=== PATIENT | male | born 1990 | race Caucasian/White ===

== ENCOUNTER 2018-06-19 16:19 | Emergency (ER) | payer BC, MEDICARE, OTHER, MEDICAID | END 2018-06-19 18:09 | disposition home or self-care (01) | LOC: M ED 16:19 | DX: S61.432A Puncture wound without foreign body of left hand, initial encounter (principal); W27.0XXA Contact with workbench tool, initial encounter; Y92.9 Unspecified place or not applicable; Y93.89 Activity, other specified; Y99.9 Unspecified external cause status; E11.9 Type 2 diabetes mellitus without complications; Z79.4 Long term (current) use of insulin; Z79.899 Other long term (current) drug therapy | CPT/HCPCS: 73130 ==

== ENCOUNTER 2018-09-29 11:56 | Emergency (ER) | payer BC, MEDICARE, OTHER, MEDICAID ==
[2018-09-29] MEDS: ONDANSETRON 4MG/2ML VIAL (J2405) IV ×2 (14:28)
[2018-09-29] MEDS: NS 1,000 ML IV ×2 (14:28)
[2018-09-29 14:33] LABS: BASO % 0.3 % (0.0-1.0); EOS % 0.2 % (0.0-3.0); HEMATOCRIT 37.8 % (42.0-52.0); HEMOGLOBIN 13.4 g/dl (13.5-17.5); IMMATURE GRANULOCYTE % 0.8 % (0-3.0); LYMPH # 0.9 10^3/uL (1.5-6.5); LYMPH % 6.2 % (24.0-44.0); MEAN CORPUSCULAR HEMOGLOBIN 30.6 pg (27.0-33.0); MEAN CORPUSCULAR HGB CONC 35.4 g/dl (32.0-36.5); MEAN CORPUSCULAR VOLUME 86.3 fl (80.0-96.0); MONO # 0.9 10^3/uL (0.0-0.8); MONO % 6.5 % (0.0-5.0); NEUTROPHILS # 12.5 10^3/uL (1.8-7.7); PLATELET COUNT, AUTOMATED 225 10^3/uL (150-450); RED BLOOD COUNT 4.38 10^6/uL (4.30-6.10); RED CELL DISTRIBUTION WIDTH 11.9 % (11.5-14.5); WHITE BLOOD COUNT 14.5 10^3/uL (4.0-10.0)
[2018-09-29 15:05] LABS: ANION GAP 9 MEQ/L (8-16); BLOOD UREA NITROGEN 20 MG/DL (7-18); CALCIUM LEVEL 8.9 MG/DL (8.5-10.1); CARBON DIOXIDE LEVEL 27 MEQ/L (21-32); CHLORIDE LEVEL 104 MEQ/L (98-107); CREATININE FOR GFR 0.91 MG/DL (0.70-1.30); GLOMERULAR FILTRATION RATE > 60.0 (>60); GLUCOSE, FASTING 69 MG/DL (70-100); POTASSIUM SERUM 3.4 MEQ/L (3.5-5.1); SODIUM LEVEL 140 MEQ/L (136-145)
[2018-09-29] MEDS: POTASSIUM CHLORIDE 10 MEQ SR TABLET PO ×2 (15:22)
[2018-10-03 09:30] LABS: BEDSIDE GLUCOSE 74 MG/DL (70-105)
== END 2018-09-29 16:05 | disposition home or self-care (01) ==
LOC: M ED 11:56
DX: S00.83XA Contusion of other part of head, initial encounter (principal); W19.XXXA Unspecified fall, initial encounter; Y92.009 Unspecified place in unspecified non-institutional (private) residence as the place of occurrence of the external cause; E11.9 Type 2 diabetes mellitus without complications; Z79.4 Long term (current) use of insulin; F17.210 Nicotine dependence, cigarettes, uncomplicated
CPT/HCPCS: J2405

== ENCOUNTER → 2018-11-28 | Outpatient (CLI) | payer BC, OTHER, MEDICARE, MEDICAID ==
[~2018-11-28] MED LIST: AUGM875T28 PO; BENZ200C70 PO; BUSP15TA47 PO; BUSP30TA PO; DRIS50003 PO; GLUC1CHW11 PO; GLUC1KIT; HUMA100I SC; HUMA100I3 SC; HUMA100I5 SUBQ; HUMA75VL SC; INSUHUMDS SC; INSULANT SC; LEVA750T7 PO; PRED10TA PO; PRED20TA PO; SERT-138 PO; SIMV20TA2 PO; TESS100C PO; TYLE325T5 PO; VITA-110 PO; VITA500047 PO; ZOCO10TA PO; [UNRECOGNIZED DRUG - CODE] PO
--- NOTE | 2018-11-28 13:36 | REP ---
UNILATERAL RIGHT RIBS, PA CHEST, FIVE VIEWS: HISTORY: Contusion. COMPARISON: 09/29/2018 The lungs are clear. The heart is normal in size. The pulmonary vasculature is normal in appearance. The bony structure is intact. IMPRESSION: No acute disease. Electronically Signed by Pavel Gresham MD 11/28/2018 01:37 P
== END ==
LOC: M WUC 12:41
PROVIDERS: ATTEND Physician Assistant
DX: S20.221A Contusion of right back wall of thorax, initial encounter (principal); X58.XXXA Exposure to other specified factors, initial encounter; Y92.9 Unspecified place or not applicable

== ENCOUNTER → 2019-07-30 | Outpatient (CLI) | payer BC, OTHER, MEDICARE, MEDICAID ==
[~2019-07-30] MED LIST changes: +PRED-351 PO; -PRED10TA PO
== END ==
LOC: M LAB 16:20
PROVIDERS: ATTEND Internal Medicine Gastroenterology
DX: Z53.9 Procedure and treatment not carried out, unspecified reason (principal)

== ENCOUNTER → 2019-07-31 | Outpatient (REF) | payer BC, OTHER, MEDICARE, MEDICAID | LOC: M LAB REF 10:24 | PROVIDERS: ATTEND Internal Medicine Gastroenterology | DX: K58.0 Irritable bowel syndrome with diarrhea (principal) ==

== ENCOUNTER 2019-09-02 19:23 | Emergency (ER) | payer BC, OTHER, MEDICARE, MEDICAID ==
[~2019-09-02] VITALS: Ht 172.7 cm; Wt 76.4 kg
[2019-09-02] MEDS ORDERED: ALIG4CAP PO ×2 (19:39→22:33)
[2019-09-02] MEDS ORDERED: SERT-138 PO (22:33)
[2019-09-02] MEDS ORDERED: DEXT31GE PO (22:33)
[2019-09-02] MEDS ORDERED: INSUHUMDS SC (22:33)
[2019-09-02] MEDS ORDERED: D3 S20002 PO (22:33)
[2019-09-02] MEDS ORDERED: SIMV40TA2 PO (22:33)
[2019-09-02] MEDS ORDERED: GLUC4GMTAB PO (22:33)
[2019-09-02] MEDS ORDERED: HUMA75IN2 SC (22:33)
[2019-09-02] MEDS ORDERED: GLUC1KIT IM (22:33)
[2019-09-03 02:14] VITALS: BP 128/80
== END 2019-09-03 02:15 | disposition home or self-care (01) ==
LOC: M ED 19:23
DX: F43.20 Adjustment disorder, unspecified (principal); Z91.5 Personal history of self-harm; F84.5 Asperger's syndrome; Z87.820 Personal history of traumatic brain injury; K21.9 Gastro-esophageal reflux disease without esophagitis; E11.9 Type 2 diabetes mellitus without complications; Z79.4 Long term (current) use of insulin; E55.9 Vitamin D deficiency, unspecified; F41.9 Anxiety disorder, unspecified; F32.9 Major depressive disorder, single episode, unspecified; Z79.899 Other long term (current) drug therapy

== ENCOUNTER 2019-10-01 18:15 | Inpatient (IN) | payer BC, OTHER, MEDICARE, MEDICAID ==
[~2019-10-01] VITALS: Ht 175.3 cm; Wt 77.1 kg
[~2019-10-01 18:15] MED LIST changes: +ALIG4CAP PO; +D3 S20002 PO; +DEXT31GE PO; +GLUC1KIT IM; +GLUC4GMTAB PO; +HUMA75IN2 SC; +SIMV40TA2 PO
[2019-10-01 19:13] LABS: HEMATOCRIT 41.2 % (42.0-52.0); HEMOGLOBIN 14.4 g/dl (13.5-17.5); MEAN CORPUSCULAR VOLUME 88.6 fl (80.0-96.0); PLATELET COUNT, AUTOMATED 172 10^3/uL (150-450); RED BLOOD COUNT 4.65 10^6/uL (4.30-6.10); WHITE BLOOD COUNT 5.9 10^3/uL (4.0-10.0)
[2019-10-01 19:38] LABS: ACETAMINOPHEN LEVEL < 2.0 UG/ML (10.0-30.0); ALBUMIN 4.3 GM/DL (3.2-5.2); ALT/SGPT 31 U/L (12-78); BILIRUBIN,DIRECT < 0.1 MG/DL (0.0-0.2); BILIRUBIN,TOTAL 0.3 MG/DL (0.2-1.0); BLOOD UREA NITROGEN 13 MG/DL (7-18); CALCIUM LEVEL 9.7 MG/DL (8.5-10.1); CARBON DIOXIDE LEVEL 30 MEQ/L (21-32); CHLORIDE LEVEL 107 MEQ/L (98-107); CREATININE FOR GFR 1.21 MG/DL (0.70-1.30); ETHYL ALCOHOL (ETHANOL) < 0.003 % (0.000-0.010); GLOMERULAR FILTRATION RATE > 60.0 (>60); GLUCOSE, FASTING 180 MG/DL (70-100); POTASSIUM SERUM 4.2 MEQ/L (3.5-5.1); SALICYLATE LEVEL < 1.7 MG/DL (5.0-30.0); SODIUM LEVEL 142 MEQ/L (136-145); TOTAL PROTEIN 7.3 GM/DL (6.4-8.2)
[2019-10-01 19:43] LABS: AMPHETAMINES LEVEL URINE NEGATIVE (NEGATIVE); BARBITURATES URINE NEGATIVE (NEGATIVE); BENZODIAZEPINES URINE NEGATIVE (NEGATIVE); CANNABINOIDS URINE NEGATIVE (NEGATIVE); COCAINE METABOLITE URINE NEGATIVE (NEGATIVE); METHADONE URINE NEGATIVE (NEGATIVE); OPIATES URINE NEGATIVE (NEGATIVE); PHENCYCLIDINE URINE NEGATIVE (NEGATIVE)
[2019-10-02] MEDS ORDERED: GLUCAGON FOR INJ 1 MG VIAL (J1610) SC PRN
[2019-10-02] MEDS ORDERED: DEXTROSE 50% 50 ML SYRINGE IV PRN
[2019-10-02] MEDS ORDERED: traZODone 50 MG TAB PO PRN
[2019-10-02] MEDS ORDERED: MOM 30ML SUSPENSION UDC PO PRN
[2019-10-02] MEDS ORDERED: MAALOX 30 ML SUSP *UDC PO PRN
[2019-10-02] MEDS ORDERED: GLUCOSE 4 GM CHEW TABLET PO PRN
[2019-10-02] MEDS: SERTRALINE HCL 50 MG TAB PO SCH ×3 (00:33→20:23)
[2019-10-02] MEDS: SIMVASTATIN 40 MG TAB PO SCH ×2 (00:33→20:23)
[2019-10-02 03:03] VITALS: BP 122/83
[2019-10-02 06:36] VITALS: BP 115/58
[2019-10-02] MEDS: HumaLOG 75/25 MIX INSULIN PER UNIT SC SCH ×3 (07:30→18:22)
[2019-10-02] MEDS ORDERED: HumaLOG INSULIN (NovoLOG) PER UNIT SC SCH ×2 (07:30→21:00)
[2019-10-02] MEDS ORDERED: INSUHUMDS SC (09:22)
[2019-10-02] MEDS ORDERED: HUMA75IN2 SC (09:22)
[2019-10-02] MEDS: VITAMIN D 1,000 INTERNATIONAL UNITS TABLET PO SCH (09:35)
[2019-10-02] MEDS: busPIRone 10 MG TAB PO SCH ×2 (09:35→20:23)
[2019-10-02] MEDS: LIDOCAINE 5% OINT 30 GM TOP SCH ×4 (09:37→21:21)
[2019-10-02] MEDS: ACYCLOVIR 200 MG CAPSULE PO SCH ×4 (09:37→20:23)
[2019-10-02 09:42] LABS: CHOLESTEROL RISK RATIO 3.176 (<5)
[2019-10-02] MEDS ORDERED: HumaLOG INSULIN (NovoLOG) PER UNIT SC PRN (10:30)
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
[2019-10-02 18:34] VITALS: BP 132/87
--- NOTE | 2019-10-02 18:37 | HPE ---
DATE OF ADMISSION: 10/02/2019 CHIEF COMPLAINT: Patient has cold sore on the lower lip, which is painful. No fevers, chills, headaches, change in vision, or altered mental status. No genital discharge. Patient is compliant with his insulin for diabetes, for which he follows with [facility]. Last A1c was 8.1. HISTORY OF PRESENT ILLNESS: A 25-year-old male with diabetes, followed by [facility] every 3 months. Next appointment is 10/03/2019, attention deficit disorder (ADD), hyperlipidemia, vitamin D deficiency, posttraumatic stress disorder (PTSD), Asperger syndrome. PAST MEDICAL HISTORY: 1. Vasectomy. 2. Ingrown toenail. ALLERGIES: No known drug allergies. SOCIAL HISTORY: Single, unemployed. Previously smoked one and one-half packs of cigarettes per week when he was 18. Quit some time ago. Drinks six beers on the weekends. No illicit or recreational drug use. FAMILY HISTORY: Father alive and well. He is adopted. HOSPITAL MEDICATIONS: - Lispro insulin before food/at bedtime - vitamin D - buspirone - Lispro 75/25 twice a day - trazodone 50 mg at bedtime - Tylenol 650 every 6 as needed - milk of magnesia 30 daily as needed - Mylanta 30 every 4 as needed - dextrose 25 as needed, hypoglycemic protocol - sertraline 150 twice a day - simvastatin 40 mg every evening REVIEW OF SYSTEMS: Per history of present illness (HPI). A 12-point system otherwise negative. PHYSICAL EXAMINATION: Temperature 99.3, pulse 70, respiratory rate 12, blood pressure 115/58, 99% on room air. GENERAL: Patient has a cold sore on the lower lip, crusting, painful, and tender, erythematous base. No thyromegaly, cervical lymphadenopathy, or jugular venous distention. Pupils round and reactive. Extraocular muscles are intact. Anicteric. LUNGS: Clear to auscultation. No wheezes, rales, or rhonchi. HEART: S1, S2, sinus rhythm. ABDOMEN: Soft, nontender, nondistended. Positive bowel sounds. EXTREMITIES: No clubbing, cyanosis, or any pitting edema LABORATORY DATA: White count 5.9, hemoglobin 14, hematocrit 41, platelet count 172. Sodium 142, potassium 4.2, chloride 107, bicarbonate 30, BUN 13, creatinine 1.21, glucose 180, calcium 9.7. Total bilirubin 0.3, direct bilirubin less than 0.1, AST 16, ALT 31, alkaline phosphatase 63, total protein 7.3, albumin 4.3. TSH of 1.850. ASSESSMENT AND PLAN: This is a 28-year-old with diabetes. Follows at [facility] every 3 months, posttraumatic stress disorder (PTSD), Asperger, attention deficit disorder (ADD), hyperlipidemia, vitamin D deficiency. Complains of a cold sore on the lower lip and requests for his 75/25 insulin mixed B renewed. Patient is admitted for depressive disorder at inpatient mental health unit ([facility]) with the following issues. 1. Herpes, type 1. Cold sore on the lower lip. Zovirax for 5 days, topical lidocaine for pain control. 2. Diabetes. Currently on his home dose of 75/25 Humalog insulin subcutaneous twice a day and sliding-scale insulin before food/at bedtime. 3. Depression, managed by psychiatrist. Currently on sertraline. 4. Dyslipidemia, on Zocor. 5. Deep vein thrombosis (DVT) prophylaxis. Encourage ambulation. MTDD
[2019-10-02] MEDS: HumaLOG INSULIN (NovoLOG) PER UNIT SC PRN (20:26)
[2019-10-03] MEDS: ACYCLOVIR 200 MG CAPSULE PO SCH ×5 (06:30→20:46)
[2019-10-03 06:54] VITALS: BP 122/63
[2019-10-03] MEDS: HumaLOG 75/25 MIX INSULIN PER UNIT SC SCH (08:00)
[2019-10-03] MEDS: LIDOCAINE 5% OINT 30 GM TOP SCH ×4 (09:00→20:46)
[2019-10-03] MEDS: VITAMIN D 1,000 INTERNATIONAL UNITS TABLET PO SCH (09:48)
[2019-10-03] MEDS: busPIRone 10 MG TAB PO SCH ×2 (09:48→20:47)
[2019-10-03] MEDS: SERTRALINE HCL 50 MG TAB PO SCH ×2 (09:49→20:47)
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
[2019-10-03 18:00] VITALS: BP 119/57
[2019-10-03] MEDS: SIMVASTATIN 40 MG TAB PO SCH (20:47)
[2019-10-03] MEDS: HumaLOG INSULIN (NovoLOG) PER UNIT SC PRN (20:49)
[2019-10-04] MEDS: ACETAMINOPHEN TAB 650MG DOSE (2X325MG) PO PRN ×2 (06:16→16:34)
[2019-10-04] MEDS: ACYCLOVIR 200 MG CAPSULE PO SCH ×5 (06:16→20:23)
[2019-10-04 06:22] VITALS: BP 133/71
[2019-10-04] MEDS: HumaLOG 75/25 MIX INSULIN PER UNIT SC SCH ×2 (07:45→16:41)
[2019-10-04] MEDS: LIDOCAINE 5% OINT 30 GM TOP SCH ×4 (09:00→20:28)
[2019-10-04] MEDS: busPIRone 10 MG TAB PO SCH ×2 (09:27→20:22)
[2019-10-04] MEDS: SERTRALINE HCL 50 MG TAB PO SCH ×2 (09:28→20:23)
[2019-10-04] MEDS: VITAMIN D 1,000 INTERNATIONAL UNITS TABLET PO SCH (09:28)
[2019-10-04 10:05] VITALS: BP 115/65
[2019-10-04] MEDS ORDERED: HumaLOG INSULIN (NovoLOG) PER UNIT SC STA (11:00)
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
[2019-10-04 18:00] VITALS: BP 149/76
--- NOTE | 2019-10-04 18:38 | MHIPN ---
DATE OF SERVICE: 10/04/2019 I was notified per nursing staff that Venkata Ashley is a type 1 insulin dependent diabetes. He is on the inpatient mental health unit for depressive disorder. He spiked a temperature earlier today at 101, prior to that it had been 99.3, 98, 98. At 6:00 a.m. it was apparently 101. He had Tylenol and he has been fine all day, feeling well without complaints until approximately 1630 hours when he had a temperature of over 101.8. I was notified at approximately 6:20. He says that he feels well. He knew he had a temperature earlier, it is starting to get better, it is down to 100. He said that he has had a tickle in his throat and a cough. OBJECTIVE: The patient is alert and oriented times three. Temperature is now down to 100. Blood pressure 128/70, pulse 100, respirations 18. HEENT: Pupils are equal and reactive to light. Extraocular muscles intact. Sclerae clear. Conjunctivae normal. No facial asymmetry. Pharynx, gums and tongue pink and moist. Tongue is midline. NECK: Supple. CHEST: Coarse breath sounds. No wheeze or retraction. HEART: Regular. EXTREMITIES: No clubbing, cyanosis, and edema. IMPRESSION/PLAN: 1. Fever. We will get a complete blood count (CBC), CMP, lactic acid, chest x-ray, and UA. Recheck temperature in approximately 1 hour, followup on chest x-ray.
[2019-10-04 19:12] LABS: BASO % 0.5 % (0.0-1.0); EOS % 0.5 % (0.0-3.0); HEMATOCRIT 40.4 % (42.0-52.0); HEMOGLOBIN 13.9 g/dl (13.5-17.5); LYMPH # 0.8 10^3/uL (1.5-5.0); MEAN CORPUSCULAR HEMOGLOBIN 30.8 pg (27.0-33.0); MEAN CORPUSCULAR HGB CONC 34.4 g/dl (32.0-36.5); MEAN CORPUSCULAR VOLUME 89.6 fl (80.0-96.0); MONO # 0.7 10^3/uL (0.0-0.8); MONO % 11.8 % (0.0-5.0); NEUTROPHILS # 4.3 10^3/uL (1.5-8.5); NEUTROPHILS % 73.9 % (36.0-66.0); PLATELET COUNT, AUTOMATED 143 10^3/uL (150-450); RED BLOOD COUNT 4.51 10^6/uL (4.30-6.10); WHITE BLOOD COUNT 5.9 10^3/uL (4.0-10.0)
[2019-10-04] MEDS ORDERED: HumaLOG INSULIN (NovoLOG) PER UNIT SC PRN (19:30)
[2019-10-04 19:43] LABS: ALBUMIN 3.9 GM/DL (3.2-5.2); ALT/SGPT 25 U/L (12-78); BILIRUBIN,TOTAL 0.5 MG/DL (0.2-1.0); BLOOD UREA NITROGEN 12 MG/DL (7-18); CALCIUM LEVEL 9.1 MG/DL (8.5-10.1); CARBON DIOXIDE LEVEL 28 MEQ/L (21-32); CHLORIDE LEVEL 99 MEQ/L (98-107); CREATININE FOR GFR 1.11 MG/DL (0.70-1.30); GLOMERULAR FILTRATION RATE > 60.0 (>60); GLUCOSE, FASTING 485 MG/DL (70-100); POTASSIUM SERUM 4.3 MEQ/L (3.5-5.1); SODIUM LEVEL 133 MEQ/L (136-145); TOTAL PROTEIN 6.9 GM/DL (6.4-8.2)
[2019-10-04 20:00] VITALS: BP 128/81
[2019-10-04] MEDS: SIMVASTATIN 40 MG TAB PO SCH (20:22)
--- NOTE | 2019-10-04 20:32 | MHIPN ---
DATE OF SERVICE: 10/04/2019 He is a 28-year-old male with autism, who is currently on the mental health unit for unspecified depressive disorder. We were asked to follow the patient for his diabetes. He has insulin dependent diabetes type 1 that is quite brittle. He follows a specific regimen with the [facility]. He takes 75/25 twice a day, once at 7:30 a.m. with sliding scale coverage and also part of that is that if his blood sugar at 7:30 a.m. is greater than 251 then he only gets a certain amount of 75/25, he must then have another fingerstick in 3 hours and follow a Humalog sliding scale. The second time of the day that he takes 75/25 is at 4:30 with its own sliding scale and also if at 4:30 the blood sugar was greater than 251 then it must be rechecked in 3 hours and follow a Humalog sliding scale. His 75/25 and the plain Humalog correct scales are on EMR. Nursing has been instructed that they must do the fingersticks at 7:30 a.m. and 4:30 p.m. They have been doing them at 6:00 a.m. This morning the patient only got 24 units of 75/25 instead of 28 units and blood sugar went up to 553, gave 8 units of the Humalog and by 12:30 it was down to 403, by 4:30 it was down to 312 and he got an appropriate dose of 30 units of 75/25 and now it will need to be checked again at 7:30 p.m. and given Humalog if needed according to that scale. The patient continues on consistent carbohydrate diet. OBJECTIVE: VITAL SIGNS: Blood pressure 115/65, pulse 81, respirations 16, oxygen saturation 100% on room air, temperature 98.3. The patient is alert and oriented. HEENT: Pupils are equal and reactive to light. Extraocular muscles intact. Sclerae clear. Conjunctivae normal. No facial asymmetry. Pharynx, gums and tongue pink and moist. Tongue is midline. NECK: Supple without lymphadenopathy. CHEST: Clear to auscultation. HEART: Regular. ABDOMEN: Benign. EXTREMITIES: No clubbing, cyanosis, and edema. Peripheral pulses equal and palpable bilaterally. IMPRESSION/PLAN: 1. Insulin dependent diabetes type 1. Continue 75/25 with a morning scale and a before dinner scale. Continue postprandial scale with Humalog 3 hours after blood sugar is greater than 251. Continue consistent carbohydrate diet. 2. Herpes type 1. Continue Zovirax, improving. 3. Psychiatric plan per psychiatry.
[2019-10-04 20:42] LABS: C REACTIVE PROTEIN QUANTITATIV 7.84 MG/DL (0.00-0.30)
[2019-10-05] MEDS: ACYCLOVIR 200 MG CAPSULE PO SCH ×4 (06:11→17:15)
[2019-10-05] MEDS: ACETAMINOPHEN TAB 650MG DOSE (2X325MG) PO PRN (06:30)
[2019-10-05 06:51] VITALS: BP 132/74
[2019-10-05] MEDS: HumaLOG 75/25 MIX INSULIN PER UNIT SC SCH ×2 (07:13→17:20)
--- NOTE | 2019-10-05 07:14 | IPNPDOC ---
Date Seen The patient was seen on 10/05/19. Progress Note SUBJECTIVE: Patient had a fever yesterday and this morning, but not in DKA, does not have an anion gap, lactic acid elevated at 2.2, CRP elevated at 7.84, respiratory virus panel negative on 10/04/2019, blood cultures pending obtained on 10/04/2019 2. +dry cough. Review chest x-ray, as not appear to have any acute processes, pending official read. Urinalysis is not suggestive of UTI. Patient has no leukocytosis. Patient denies any headaches, chest pain, nausea, vomiting, abdominal pain, urinary issues, or bowel issues, denies arthralgias, myalgias, or new rashes. He does report intermittent shortness of breath. OBJECTIVE PHYSICAL EXAMINATION: VITAL SIGNS: Please see below. GENERAL: male in no acute distress, able to speak in full sentences HEENT:. Normocephalic, atraumatic, tympanic membranes bilaterally clear, mucous membranes, healing canker sore on L oral fissure CARDIOVASCULAR: S1, S2. RESPIRATORY: Clear to auscultation bilaterally. ABDOMINAL:, Positive bowel sounds, nontender to palpation throughout EXTREMITIES:. No edema NEUROLOGICAL: Able to follow structures without difficulty PSYCHOLOGICAL:, Cooperative LABORATORY DATA, IMAGING STUDIES, MICROBIOLOGY: Please see below. ASSESSMENT AND PLAN: Pt is a 28-year-old with Insulin dependent diabetes, posttraumatic stress disorder (PTSD), Asperger, attention deficit disorder (AD D), hyperlipidemia, vitamin D deficiency followed for medical treatment. #URI: Symptomatic treatment #Herpes, type 1: Cold sore on the lower lip. Zovirax for 5 days (ends 10/07), topical lidocaine for pain control. #Diabetes. Continue his home dose of 75/25 Humalog insulin subcutaneous, ISS twice a day and sliding-scale insulin before food/at bedtime. #Depression: continue sertaline, managed by psych #Dyslipidemia: continue home Zocor. #Deep vein thrombosis (DVT) prophylaxis: Encourage ambulation. . We'll continue to follow VS, I&O, 24H, Fishbone Vital Signs/I&O Vital Signs Date Time Temp Pulse Resp B/P (MAP) Pulse Ox O2 Delivery O2 Flow Rate FiO2 10/05/19 06:51 102.2 99 14 132/74 (93) 10/04/19 20:00 99 Room Air Laboratory Data 24H LABS Laboratory Tests 2 10/04/19 09:23: Bedside Glucose (Misc Panel) 553*H 10/04/19 09:46: Bedside Glucose Confirm (Misc) 545*H 10/04/19 12:31: Bedside Glucose (Misc Panel) 403H 10/04/19 16:37: Bedside Glucose (Misc Panel) 312H 10/04/19 18:48: Immature Granulocyte % (Auto) 0.3, Neutrophils (%) (Auto) 73.9H, Lymphocytes (%) (Auto) 13.0L, Monocytes (%) (Auto) 11.8H, Eosinophils (%) (Auto) 0.5, Basophils (%) (Auto) 0.5, Neutrophils # (Auto) 4.3, Lymphocytes # (Auto) 0.8L, Monocytes # (Auto) 0.7, Eosinophils # (Auto) 0.0, Basophils # (Auto) 0.0, Nucleated Red Blood Cells % (auto) 0.0, Anion Gap 6L, Glomerular Filtration Rate > 60.0, Lac tic Acid Level 2.2*H, Calcium Level 9.1, Total Bilirubin 0.5#, Aspartate Amino Transf (AST/SGOT) 11, Alanine Aminotransferase (ALT/SGPT) 25, Alkaline Phosphatase 63, C-Reactive Protein, Quantitative 7.84H, Total Protein 6.9, Albumin 3.9, Albumin/Globulin Ratio 1.30 10/04/19 19:31: Bedside Glucose (Misc Panel) 484H 10/04/19 20:20: Urine Color YELLOW, Urine Appearance CLEAR, Urine pH 6.0, Urine Specific [place] 1.031, Urine Protein NEGATIVE, Urine Glucose (UA) 3+H, Urine Ketones TRACEH, Urine Blood NEGATIVE, Urine Nitrite NEGATIVE, Urine Bilirubin NEGATIVE, Urine Urobilinogen 0.2, Urine Leukocyte Esterase NEGATIVE, Urine WBC (Auto) 0, Urine RBC (Auto) 0, Urine Hyaline Casts (Auto) 0, Urine Bacteria (Auto) NEGATIVE, Urine Squamous Epithelial Cells 0, Urine Mucus (Auto) SMALL, Urine Sperm (Auto) 10/04/19 22:59: Bedside Glucose (Misc Panel) 249H 10/04/19 23:21: Lactic Acid Followup at 4 Hours 1.1 10/05/19 01:49: Bedside Glucose (Misc Panel) 209H 10/05/19 04:37: Bedside Glucose (Misc Panel) 217H 10/05/19 06:28: Bedside Glucose (Misc Panel) 230H CBC/BMP Laboratory Tests 10/04/19 18:48 Microbiology Microbiology 10/04/19 Respiratory Virus Panel (PCR) ([facility]) - Final, Complete 10/04/19 Blood Culture, Received Pending 10/04/19 Blood Culture, Received Pending INDRA ATKINSON MD Oct 05, 2019 07:14
--- NOTE | 2019-10-05 07:45 | REP ---
HISTORY: Cough and fever. COMPARISON: Frontal view obtained as part of a rib series on 11/28/2018. FINDINGS: The superior mediastinal structures are midline. The cardiac silhouette is unremarkable in size, shape and position. The diaphragmatic surfaces of the lungs are regular and the costophrenic angles are clear. The pulmonary brannon are clear. The imaged osseous structures are intact. IMPRESSION: There is no acute cardiopulmonary disease. No significant change from the prior exam. Electronically Signed by Mike Kim DO 10/05/2019 09:22 A
[2019-10-05] MEDS: busPIRone 10 MG TAB PO SCH (08:50)
[2019-10-05] MEDS: SERTRALINE HCL 50 MG TAB PO SCH (08:50)
[2019-10-05] MEDS: VITAMIN D 1,000 INTERNATIONAL UNITS TABLET PO SCH (08:50)
[2019-10-05] MEDS: LIDOCAINE 5% OINT 30 GM TOP SCH ×3 (08:53→17:00)
[2019-10-05] MEDS ORDERED: SODIUM CHLORIDE NASAL 0.65% SPRAY BTL (OCEAN) PRN (11:15)
[2019-10-05] MEDS ORDERED: BENZONATATE 100 MG CAP PO PRN (11:15)
[2019-10-05] MEDS ORDERED: HumaLOG INSULIN (NovoLOG) PER UNIT SC SCH (12:00)
[2019-10-05] MEDS ORDERED: IBUPROFEN 600 MG TAB PO PRN (15:00)
[2019-10-05 16:17] LABS: HEMATOCRIT 41.1 % (42.0-52.0); HEMOGLOBIN 14.3 g/dl (13.5-17.5); MEAN CORPUSCULAR HEMOGLOBIN 30.8 pg (27.0-33.0); MEAN CORPUSCULAR HGB CONC 34.8 g/dl (32.0-36.5); MEAN CORPUSCULAR VOLUME 88.6 fl (80.0-96.0); PLATELET COUNT, AUTOMATED 127 10^3/uL (150-450); RED BLOOD COUNT 4.64 10^6/uL (4.30-6.10); WHITE BLOOD COUNT 5.9 10^3/uL (4.0-10.0)
[2019-10-05 16:44] LABS: BLOOD UREA NITROGEN 13 MG/DL (7-18); CALCIUM LEVEL 9.5 MG/DL (8.5-10.1); CARBON DIOXIDE LEVEL 28 MEQ/L (21-32); CHLORIDE LEVEL 94 MEQ/L (98-107); CREATININE FOR GFR 1.16 MG/DL (0.70-1.30); GLOMERULAR FILTRATION RATE > 60.0 (>60); GLUCOSE, FASTING 477 MG/DL (70-100); POTASSIUM SERUM 4.6 MEQ/L (3.5-5.1); SODIUM LEVEL 132 MEQ/L (136-145)
[2019-10-05 17:10] VITALS: BP 115/72
[2019-10-05] MEDS ORDERED: HumaLOG INSULIN (NovoLOG) PER UNIT SC STA (19:38)
--- NOTE | 2019-10-06 23:26 | MHDS ---
DATE OF ADMISSION: 10/01/2019 DATE OF DISCHARGE: 10/05/2019 HISTORY OF PRESENT ILLNESS: This 28-year-old man with autism residing at [facility] was admitted due to grabbing a sharp stick with threats of harming himself. Please refer to Dr. Xavier admission note from 10/01/2019 for further history on this patient. DISCHARGE DIAGNOSES: 1. 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 2. Autism spectrum disorder. 3. History of posttraumatic stress disorder. 4. History of attention deficit hyperactivity disorder. MEDICAL HISTORY: The patient is transferred to medical service due to uncontrolled glucose. He had a glucose of over 500. The patient has a history of diabetes, hyperlipidemia, vitamin D deficiency and this is all according to Dr. Sugey Palacios. On admission, his blood work was normal as far as hematology goes, except his fasting glucose was high at 180. The liver enzymes were normal. He had lipid profile that was normal. MENTAL STATUS EXAMINATION: I had seen the patient this morning. The patient was alert and oriented times 3. Eye contact was fairly good. He had no complaints. He is not suicidal, homicidal. Concentration is fair. Memory was intact. Says his mood was better and affect restricted, but appropriate to mood. Concentration is fair. Memory is intact. Insight and judgment fair. TREATMENT AND PLAN: It seems that according to the records that patient was improving and was denying being suicidal or homicidal. The patient again is transferred to the medical service due to glucose being very elevated.
--- NOTE | 2019-10-07 10:09 | MHDSPDOC ---
[facility] Discharge Summary Discharge Summary DATE OF ADMISSION: Oct 01, 2019 at 23:51 DATE OF DISCHARGE: Oct 05, 2019 at 21:07 DISCHARGE DIAGNOSES: Adjustment d/o with anxiety and conduct problems Autism Spectrum (Asperger's) high functioning Hx PTSD Hx ADHD REASON FOR ADMISSION: Patient is a 28 -year-old , male, with a history of Autism Specturm (Asperger's) and previous admit [facility] 02/2016, residing at [facility] who was brought to ED by police after pt grabbing a sharp stick and made threats to harm himself. Once in ED pt stated to [facility] staff that [facility] are keeping his food and money and so he grabbed a stick to keep [facility] staff away from him. Pt was cooperative when seen in ED. Stated "I've had it with [facility] and if the continue to control my life then I don't want to be around." States he's been struggling with living situation at [facility] since he first moved in at 17y/o per ED. States that he feels his depression is worse b/c of his living situation only. Pt seen during treatment team and states he's here b/c he got angry and frustrated at [facility] due to not being able to get into his belongs for some sugars for his coffee that he was wanting to drink causing [facility] to call police which caused pt to very superficially cut his rt inner forearm in a tj-cross pattern outer of anger rather than wanting to harm himself. He states he currently takes buspar and zoloft that he find's beneficial. 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 And does sound and come across as linear, logical and capable of having more autonomy in his care for himself than that at [facility]. Denies SI/HI, hallucinations, delusions, feels safe here. CONSULTANTS INVOLVED: none TREATMENT AND PROGRESS ON THE UNIT : Pt was admitted to [facility], seen for p sychiatric assessment and restarted on his outpatient medication Buspar 30mg bid and zoloft 150mg daily. He was provided trazodone 50mg qhs prn insomnia. Pt found his medications beneficial and tolerated them well. He attended groups daily during his stay. His symptoms improved with treatment. Spoke with pt that for him to possible be able to live anywhere else other than [facility] he must work with his PO as he is a level 2 sex offender and continues to break rules at [facility]. Pt states he'll do better to follow the rules and work with his PO to move into less restrictive housing. On day of discharge he denied depression, anxiety, insomnia, SI/HI, hallucinations, delusions. Pt transferred to medical unit for DKA prior D/c home. He is safe for d/c back to [facility] once medically stable DISCHARGE ASSESSMENT:Per 10/04/19: "Pt seen and states that his mood is "good". States he slept well last night. Feels he is tolerating his medications and they're beneficial. He is attending groups and finding them helpful. States his only big issue is that he does not want to return to [facility] b/c he feels he is able to attend to his needs and be able to get to his belongings, food, etc when he wants them and not when he's allowed to have them by [facility] staff. He does sound capable and logical regarding attending to personal needs and self care and does not appear to need such a high level of care. D/c supply chain planner called [facility] staff and the report that pt is a level 2 sex offender that is often dishonest which creates conflict and the one time he was in [facility] apt program had problems with his blood sugars and provider restrictions that where brought to the [facility] court with restriction put in place and privileges given back in 6mo if pt followed the rules but continued to have conflict and did not succeed. Pt was removed from [facility] apt's after [facility] found out he had sex with one of the females there not able to consent. He denies depression, anxiety, insomnia, SI/HI, hallucinations, delusions. Pt feels safe to d/c back to [facility] once medically stable. MENTAL STATUS EXAMINATION ON DISCHARGE: Per 10/04/19 General Appearance: well groomed, lacerations (very superficial on rt inner forearm in tj-cross pattern) Build: average Demeanor: average Eye Contact: average Activity: average Behavior: cooperative Speech: clear, spontaneous, reg/rate,rhythm,volume Mood: euthymic, anxious, irritable Mood "frustrated" Affect: full, appropriate, congruent, anxious Thought Process: logical/linear, intact Thought Content (Delusions): none reported, denies SI, HI, AVH Thought Content (Other): none reported, appropriate Thought Content (Aggressive): none reported Perception (Hallucinations): none reported Perception (Other): none reported Cognition (Impairment of): none reported Cognition(Intelligence Est.): average Oriented: Awake, Alert, Oriented times three Insight: good Judgment: Good Psychosis: Denies MEDICATIONS ON DISCHARGE: buspar 30mg bid zoloft 150mg daily PLAN/FOLLOWUP ARRANGEMENTS: Pt transferred to medical unit for DKA. The amount of time spent in the coordination of care for this patient was approximately 30 minutes. Patient is a 28 -year-old , male, with a history of Autism Specturm (Asperger's) and previous admit [facility] 02/2016, residing at [facility] who was brought to ED by police after pt grabbing a sharp stick and made threats to harm himself. Once in ED pt stated to [facility] staff that [facility] are keeping his food and money and so he grabbed a stick to keep [facility] staff away from him. Pt was cooperative when seen in ED. Stated "I've had it with [facility] and if the continue to control my life then I don't want to be around." States he's been struggling with living situation at [facility] since he first moved in at 17y/o per ED. States that he feels his depression is worse b/c of his living situation only. Pt seen during treatment team and states he's here b/c he got angry and frustrated at [facility] due to not being able to get into his belongs for some sugars for his coffee that he was wanting to drink causing [facility] to call police which caused pt to very superficially cut his rt inner forearm in a tj-cross pattern outer of anger rather than wanting to harm himself. He states he currently takes buspar and zoloft that he find's beneficial. 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 And does sound and come across as linear, logical and capable of having more autonomy in his care for himself than that at [facility]. Denies SI/HI, hallucinations, delusions, feels safe here. VITAL SIGNS: See below. NEW TEST RESULTS: See below. CURRENT MEDICATIONS: See below. MENTAL STATUS EXAMINATION: General Appearance: well groomed, lacerations (very superficial on rt inner forearm in tj-cross pattern) Build: average Demeanor: average Eye Contact: average Activity: average Behavior: cooperative Speech: clear, spontaneous, reg/rate,rhythm,volume Mood: euthymic, anxious, irritable Mood "frustrated" Affect: full, appropriate, congruent, anxious Thought Process: logical/linear, intact Thought Content (Delusions): none reported, denies SI, HI, AVH Thought Content (Other): none reported, appropriate Thought Content (Aggressive): none reported Perception (Hallucinations): none reported Perception (Other): none reported Cognition (Impairment of): none reported Cognition(Intelligence Est.): average Oriented: Awake, Alert, Oriented times three Insight: good Judgment: Good Psychosis: Denies DIAGNOSES: Adjustment d/o with anxiety and conduct problems Autism Spectrum (Asperger's) high functioning Hx PTSD Hx ADHD ASSESSMENT:Pt seen and states that his mood is "good". States he slept well last night. Feels he is tolerating his medications and they're beneficial. He is attending groups and finding them helpful. States his only big issue is that he does not want to return to [facility] b/c he feels he is able to attend to his needs and be able to get to his belongings, food, etc when he wants them and not when he's allowed to have them by [facility] staff. He does sound capable and logical regarding attending to personal needs and self care and does not appear to need such a high level of care. D/c supply chain planner called [facility] staff and the report that pt is a level 2 sex offender that is often dishonest which creates conflict and the one time he was in [facility] apt program had problems with his blood sugars and provi fabi restrictions that where brought to the [facility] court with restriction put in place and privileges given back in 6mo if pt followed the rules but continued to have conflict and did not succeed. Pt was removed from [facility] apt's after [facility] found out he had sex with one of the females there not able to consent. He denies depression, anxiety, insomnia, SI/HI, hallucinations, delusions. Pt feels safe here. MANAGEMENT PLAN:continue plan, work with [facility] regarding pt move into own apt Medications: buspar zoloft 150mg daily Vital Signs/I&Os Vital Signs Date Time Temp Pulse Resp B/P (MAP) Pulse Ox O2 Delivery O2 Flow Rate FiO2 10/05/19 17:10 101.0 94 16 115/72 (86) 10/04/19 20:00 99 Room Air Laboratory Data Microbiology Microbiology 10/05/19 Respiratory Virus Panel (PCR) ([facility]) - Final, Complete 10/04/19 Respiratory Virus Panel (PCR) ([facility]) - Final, Complete 10/04/19 Blood Culture - Preliminary, Resulted No Growth after 48 hours. All Specime... 10/04/19 Blood Culture - Preliminary, Resulted No Growth after 48 hours. All Specime... Medications Scheduled Bifidobacterium Infantis (Align) 4 Mg Capsule, 4 MG PO QHS, (Reported) Buspirone HCl (Buspirone HCl) 30 Mg Tab, 30 MG PO BID, (Reported) Cholecalciferol (Vitamin D3) (Vitamin D3) 2,000 Unit Capsule, 2,000 UNIT PO DAILY, (Reported) Insulin Lispro Protamin/Lispro (Humalog Mix 75-25 Kwikpen) 100 Unit/1 Ml Insuln.pen, 1 DOSE SC ACB for . , (Reported) PER SLIDING SCALE 70 - 90 = 16 UNITS 91 - 130 = 18 UNITS 131 - 150 = 20 UNITS 151 - 200 = 22 UNITS 201 - 250 = 24 UNITS 251 - 300 = 26 UNITS 301 - 350 = 28 UNITS 351 - 400 = 30 UNITS 401 - 450 = 32 UNITS OVER 450 = 32 UNITS Insulin Lispro Protamin/Lispro (Humalog Mix 75-25 Kwikpen) 100 Unit/1 Ml Insul n.pen, 1 DOSE SC ACS for . , (Reported) PER SLIDING SCALE 70 - 90 = 18 UNITS 91 - 130 = 20 UNITS 131 - 150 = 22 UNITS 151 - 200 = 24 UNITS 201 - 250 = 26 UNITS 251 - 300 = 28 UNITS 301 - 350 = 30 UNITS 351 - 400 = 31 UNITS 401 - 450 = 31 UNITS OVER 450 = 31 UNITS Sertraline HCl (Sertraline HCl) 100 Mg Tablet, 150 MG PO BID, (Reported) Simvastatin (Simvastatin) 40 Mg Tablet, 40 MG PO QHS, (Reported) Scheduled PRN Dextrose (Glucose) 4 Gm Tab.chew, 4 CHW PO ASDIRECTED PRN for LOW BLOOD SUGAR, (Reported) Dextrose/Dextrin/Maltose (Insta-Glucose Gel) 31 Gm Gel..gram., 1 DOSE PO ASDIRECTED PRN for LOW BLOOD SUGAR, (Reported) Glucagon,Human Recombinant (Glucagon Emergency Kit) 1 Mg Vial, 1 MG IM ASDIRECTED PRN for LOW BLOOD SUGAR, (Reported) Insulin Human Lispro (Humalog) 100 Unit/1 Ml Vial, 1 DOSE SC DAILY PRN for HYPERGLYCEMIA, (Reported) 3 HOURS AFTER BREAKFAST IS SUGAR IS ABOVE 250 251 - 300 = 4 UNITS 301 - 350 = 5 UNITS 351 - 400 = 6 UNITS 401 - 450 = 7 UNITS OVER 450 = 7 UNITS Insulin Human Lispro (Humalog) 100 Unit/1 Ml Vial, 1 DOSE SC DAILY PRN for HYPERGLYCEMIA, (Reported) 3 HOURS AFTER DINNER IF SUGAR IS ABOVE 250 251 - 300 = 2 UNITS 301 - 350 = 3 UNITS 351 - 400 = 4 UNITS 401 - 450 = 5 UNITS OVER 450 = 5 UNITS Allergies Coded Allergies: No Known Allergies (Verified , 12/28/11) SASHA ALVAREZ DO Oct 07, 2019 10:09
== END 2019-10-05 21:07 | disposition home or self-care (01) | DRG 755 ==
LOC: M ED 18:15 → M ED INP 23:51 → UNDOADMIN 23:51 → M PSY 23:51 → M ED INP 10-02 02:41 → M PSY 10-02 02:41
PROVIDERS: ADMIT Psychiatry & Neurology Psychiatry; ATTEND Psychiatry & Neurology Psychiatry
DX: F43.24 Adjustment disorder with disturbance of conduct (principal); B00.9 Herpesviral infection, unspecified; F43.23 Adjustment disorder with mixed anxiety and depressed mood; F84.0 Autistic disorder; F90.9 Attention-deficit hyperactivity disorder, unspecified type; F43.10 Post-traumatic stress disorder, unspecified; Z79.4 Long term (current) use of insulin; Z79.899 Other long term (current) drug therapy; E11.9 Type 2 diabetes mellitus without complications; E78.5 Hyperlipidemia, unspecified

== ENCOUNTER 2019-10-05 19:18 | Inpatient (IN) | payer BC, OTHER, MEDICARE, MEDICAID ==
[~2019-10-05] VITALS: Ht 175.3 cm; Wt 80.0 kg
[~2019-10-05 19:18] MED LIST changes: -SIMV20TA2 PO; +SIMV20TA22 PO; -SIMV40TA2 PO; +SIMV40TA20 PO
[2019-10-05] MEDS ORDERED: NS 1,000 ML IV SCH ×2 (19:50→20:00)
[2019-10-05] MEDS ORDERED: INSULIN HUMAN REGULAR 100 UNITS in NS 99 ML IV SCH (19:50)
[2019-10-05] MEDS ORDERED: ISOVUE-370 76% 100ML VIAL (Q9967) As Ordered ONE (20:04)
[2019-10-05 20:23] LABS: BLOOD UREA NITROGEN 16 MG/DL (7-18); CALCIUM LEVEL 9.6 MG/DL (8.5-10.1); CARBON DIOXIDE LEVEL 28 MEQ/L (21-32); CHLORIDE LEVEL 96 MEQ/L (98-107); CREATININE FOR GFR 1.31 MG/DL (0.70-1.30); GLOMERULAR FILTRATION RATE > 60.0 (>60); POTASSIUM SERUM 4.3 MEQ/L (3.5-5.1); SODIUM LEVEL 132 MEQ/L (136-145)
[2019-10-05 20:24] LABS: GLUCOSE, FASTING 557 MG/DL (70-100)
[2019-10-05 20:38] LABS: ACETONE/KETONE 1.58 MG/DL (<2.81); C REACTIVE PROTEIN QUANTITATIV 9.24 MG/DL (0.00-0.30)
[2019-10-05 21:15] VITALS: BP 125/78
--- NOTE | 2019-10-05 22:11 | REPVR ---
PROCEDURE INFORMATION: Exam: CT Abdomen And Pelvis With Contrast Exam date and time: 10/05/2019 9:33 PM Age: 28 years old Clinical history: Fever; Additional info: New fevers, ? abd infection TECHNIQUE: Imaging protocol: Computed tomography of the abdomen and pelvis with intravenous contrast. Axial, coronal and sagittal reformatted images were created and reviewed. Radiation optimization: All CT scans at this facility use at least one of these dose optimization techniques: automated exposure control; mA and/or kV adjustment per patient size (includes targeted exams where dose is matched to clinical indication); or iterative reconstruction. Contrast material: ISOVUE 370; Contrast volume: 100 ml; Contrast route: IV; COMPARISON: No relevant prior studies available. FINDINGS: Lungs: Patchy left lower lobe consolidation, compatible with pneumonia. Liver: Unremarkable. Gallbladder and bile ducts: No radiodense gallstones. No biliary ductal dilatation. Pancreas: Unremarkable. Spleen: Mild splenomegaly. Adrenals: Unremarkable. Kidneys and ureters: No mass. No radiodense calculi. No hydronephrosis. Stomach and bowel: Moderate amount of retained stool in the colon. No obstruction. No bowel wall thickening. No pneumatosis. Appendix: Normal. Intraperitoneal space: Trace nonspecific free pelvic fluid. No organized fluid collection. No free air. Vasculature: Unremarkable. No aneurysm. Lymph nodes: No pathologically enlarged lymph nodes. Bladder: Unremarkable. Reproductive: Unremarkable. Bones/joints: No acute osseous abnormality. Soft tissues: Unremarkable. IMPRESSION: 1. No CT evidence of acute intra-abdominal or pelvic pathology. 2. Left lower lobe pneumonia, as described above. Follow-up to resolution is recommended. 3. Additional findings, as above. Electronically signed by: Zachery Al On 10/05/2019 22:11:03 PM
[2019-10-05] MEDS: busPIRone 10 MG TAB PO SCH (22:15)
[2019-10-05] MEDS: SERTRALINE HCL 50 MG TAB PO SCH (22:15)
[2019-10-05] MEDS: SIMVASTATIN 40 MG TAB PO SCH (22:15)
[2019-10-05 22:20] LABS: BLOOD UREA NITROGEN 16 MG/DL (7-18); CALCIUM LEVEL 9.1 MG/DL (8.5-10.1); CARBON DIOXIDE LEVEL 30 MEQ/L (21-32); CHLORIDE LEVEL 97 MEQ/L (98-107); CREATININE FOR GFR 1.12 MG/DL (0.70-1.30); GLOMERULAR FILTRATION RATE > 60.0 (>60); GLUCOSE, FASTING 437 MG/DL (70-100); POTASSIUM SERUM 3.9 MEQ/L (3.5-5.1); SODIUM LEVEL 133 MEQ/L (136-145)
[2019-10-05 22:22] LABS: ABG BASE EXCESS 3.4 (-2.0-2.0); ABG HCO3 25.6 MEQ/L (22.0-26.0); ABG O2 SATURATION 98.5 % (95.0-99.0); ABG PARTIAL PRESSURE CO2 31.4 mmHg (35.0-45.0); ABG PARTIAL PRESSURE O2 112.8 mmHg (75.0-100.0); ABG STANDARD HCO3 27.6 MEQ/L (22.0-26.0); ABG TOTAL CO2 26.6 MEQ/L (22.0-29.0); ABG pH (ARTERIAL) 7.529 UNITS (7.350-7.450)
[2019-10-05] MEDS: INSULIN IV RATE CHANGE DOCUMENTATION ML/HR XX SCH (23:12)
[2019-10-06] VITALS: BP 129/71
[2019-10-06 00:18] LABS: BLOOD UREA NITROGEN 16 MG/DL (7-18); CALCIUM LEVEL 9.1 MG/DL (8.5-10.1); CARBON DIOXIDE LEVEL 31 MEQ/L (21-32); CHLORIDE LEVEL 104 MEQ/L (98-107); CREATININE FOR GFR 0.96 MG/DL (0.70-1.30); GLOMERULAR FILTRATION RATE > 60.0 (>60); GLUCOSE, FASTING 200 MG/DL (70-100); POTASSIUM SERUM 3.9 MEQ/L (3.5-5.1); SODIUM LEVEL 140 MEQ/L (136-145)
[2019-10-06] MEDS ORDERED: D5W/0.45% SODIUM CHLORIDE 1,000 ML IV SCH (00:45)
[2019-10-06] MEDS: INSULIN IV RATE CHANGE DOCUMENTATION ML/HR XX SCH ×5 (01:00→06:03)
[2019-10-06] MEDS: OSELTAMIVIR PHOSPHATE 75 MG CAP (TAMIFLU) PO SCH ×3 (01:15→21:39)
[2019-10-06] MEDS: ACETAMINOPHEN TAB 650MG DOSE (2X325MG) PO PRN ×3 (02:01→21:39)
[2019-10-06 02:17] LABS: BLOOD UREA NITROGEN 15 MG/DL (7-18); CALCIUM LEVEL 9.5 MG/DL (8.5-10.1); CARBON DIOXIDE LEVEL 30 MEQ/L (21-32); CHLORIDE LEVEL 104 MEQ/L (98-107); CREATININE FOR GFR 0.87 MG/DL (0.70-1.30); GLOMERULAR FILTRATION RATE > 60.0 (>60); GLUCOSE, FASTING 145 MG/DL (70-100); POTASSIUM SERUM 4.2 MEQ/L (3.5-5.1); SODIUM LEVEL 140 MEQ/L (136-145)
[2019-10-06 04:00] VITALS: BP 117/62
--- NOTE | 2019-10-06 04:16 | HPEPDOC ---
General Date of Admission Oct 05, 2019 at 19:46 Date of Service: Oct 12, 2019 Attending Physician: JUAN PABLO LYLES DO Chief Complaint The patient is a 28-year-old male admitted with a reason for visit of Uncontrolled Diabetes Mellitis,Hypergylcemia,Uri. History of Present Illness 28-year-old male with PMH of DM 1 and depression admitted to [facility] unit initially was recently found to have intermittently spiking fevers up to 102, and uncontrolled blood sugars despite continued insulin. He denies all symptoms besides a new dry cough has been gradually worsening over the past few days since admission. Denies any chills, nausea, vomiting, abdominal pain, sputum production. Initial workup revealed negative blood cultures and respiratory panel x2, and negative chest x-ray. He has no leukocytosis, however rising CRP. Given the concern for an acute infection, as well as impending DKA given his positive blood and urine ketones, he will be transferred out of [facility] U brought to the ICU on DKA protocol, and pending further workup for source of infection. He denies all other complaints, and admits to strictly compliant with all his medications. Home Medications Scheduled Bifidobacterium Infantis (Align) 4 Mg Capsule, 4 MG PO QHS, (Reported) Buspirone HCl (Buspirone HCl) 30 Mg Tab, 30 MG PO BID, (Reported) Cholecalciferol (Vitamin D3) (Vitamin D3) 2,000 Unit Capsule, 2,000 UNIT PO DAILY, (Reported) Insulin Lispro Protamin/Lispro (Humalog Mix 75-25 Kwikpen) 100 Unit/1 Ml Insuln.pen, 1 DOSE SC ACB for . , (Reported) PER SLIDING SCALE 70 - 90 = 16 UNITS 91 - 130 = 18 UNITS 131 - 150 = 20 UNITS 151 - 200 = 22 UNITS 201 - 250 = 24 UNITS 251 - 300 = 26 UNITS 301 - 350 = 28 UNITS 351 - 400 = 30 UNITS 401 - 450 = 32 UNITS OVER 450 = 32 UNITS Insulin Lispro Protamin/Lispro (Humalog Mix 75-25 Kwikpen) 100 Unit/1 Ml Insuln.pen, 1 DOSE SC ACS for . , (Reported) PER SLIDING SCALE 70 - 90 = 18 UNITS 91 - 130 = 20 UNITS 131 - 150 = 22 UNITS 151 - 200 = 24 UNITS 201 - 250 = 26 UNITS 251 - 300 = 28 UNITS 301 - 350 = 30 UNITS 351 - 400 = 31 UNITS 401 - 450 = 31 UNITS OVER 450 = 31 UNITS Sertraline HCl (Sertraline HCl) 100 Mg Tablet, 150 MG PO BID, (Reported) Simvastatin (Simvastatin) 40 Mg Tablet, 40 MG PO QHS, (Reported) Scheduled PRN Dextrose (Glucose) 4 Gm Tab.chew, 4 CHW PO ASDIRECTED PRN for LOW BLOOD SUGAR, (Reported) Dextrose/Dextrin/Maltose (Insta-Glucose Gel) 31 Gm Gel..gram., 1 DOSE PO ASDIRECTED PRN for LOW BLOOD SUGAR, (Reported) Glucagon,Human Recombinant (Glucagon Emergency Kit) 1 Mg Vial, 1 MG IM ASD IRECTED PRN for LOW BLOOD SUGAR, (Reported) Insulin Human Lispro (Humalog) 100 Unit/1 Ml Vial, 1 DOSE SC DAILY PRN for HYPERGLYCEMIA, (Reported) 3 HOURS AFTER BREAKFAST IS SUGAR IS ABOVE 250 251 - 300 = 4 UNITS 301 - 350 = 5 UNITS 351 - 400 = 6 UNITS 401 - 450 = 7 UNITS OVER 450 = 7 UNITS Insulin Human Lispro (Humalog) 100 Unit/1 Ml Vial, 1 DOSE SC DAILY PRN for HYPERGLYCEMIA, (Reported) 3 HOURS AFTER DINNER IF SUGAR IS ABOVE 250 251 - 300 = 2 UNITS 301 - 350 = 3 UNITS 351 - 400 = 4 UNITS 401 - 450 = 5 UNITS OVER 450 = 5 UNITS Allergies Coded Allergies: No Known Allergies (Verified , 12/28/11) Past Medical History Medical History DM1 depression Surgical History vasectomy, ingrown toenail Family History adopted Social History smoked 1.5 packs/week since age 15. Denies alcohol & illicit substances, including IV. A-FIB/CHADSVASC A-FIB History Current/History of A-Fib/PAF?: No Current PO Anticoag Therapy: No Review of Systems Other systems Constitutional: Denies fever, chills, night sweats, weight loss HEENT: Denies headache, dysphagia Skin: Denies any rashes or lesions Pulmonary: Denies dyspnea, wheezing. Admits dry cough, no hemoptysis Cardiac: Denies chest pain, palpitations, orthopnea, PND, edema, lightheadedness GI: Denies nausea, vomiting, abdominal pain, diarrhea, constipation, melena, hematochezia Endo: denies polyuria, polydipsia, excessive thirst MSK: Denies new pains or weakness Neurologic: Denies new numbness/tingling Physical Examination Other physical findings General exam: A&O 3, NAD HEENT: NCAT, EOMI, PEERLA Cardiac: RRR, normal S1 & S2, no murmurs Respiratory: CTAB, good air exchange, no w/r/r Abdomen: soft, NT, ND, normoactive bowel sounds Extremity: 2+ radial and dorsalis pedis pulses, no edema or calf tenderness Skin: [place], warm, dry, no visible rash Msk: strength 5/5 x4, normal tone Neuro: normal speech, no focal deficits Psych: Normal mood and affect Vital Signs Vital Sign - Last 24 Hours 10/05/19 21:15 Temp 98.8 Pulse 80 Resp 16 B/P (MAP) 125/78 (94) Pulse Ox 95 O2 Delivery Room Air Laboratory Data Labs 24H Laboratory Tests 2 10/05/19 19:40: Anion Gap 8, Glomerular Filtration Rate > 60.0, Calcium Level 9.6, C-Reactive Protein, Quantitative 9.24H, B-Hydroxybutyrate 1.58 10/05/19 20:25: Erythrocyte Sedimentation Rate 45H CBC/BMP Laboratory Tests 10/05/19 19:40 Microbiology Microbiology 10/05/19 Blood Culture, Received Pending 10/05/19 Blood Culture, Received Pending Assessment/Plan 28 yo M with DM1 & depression, noted to have intermittent fevers, cough, and uncontrolled sugars in mental health unit. Transferred to ICU for concern for impending DKA. Severe hyperglycemia in setting of DM1 pt takes Humulog mix 75-25 bid at home, and prn short-acting humalog in morning and evening hold sc insulin. Start insulin drip and tx as DKA protocol on IVF, npo. BMP q2h, fs hourly. No gap or acidosis so far underlying infection likely contributing New-onset fevers blood cultures and resp panel & UA neg for signs of infection repeat blood cultures pending nml wbc, but ESR & CRP elevated. No lactic acidosis. CXR negative, but CT reveals LLL consolidation, possible pneumonia likely viral URI, possible bronchitis, given his new dry cough and chest congestion given guidelines, he is considered high risk of declining if this is indeed influenza due to his risk factor of DM will start on Tamiflu and droplet precautions. Procalcitonin pending MELISSA baseline Cr 0.9-1. Noted to be 1.33 upon transfer out of [facility] likely 2/2 hyperosmotic state and dehydration IVF, hold nephrotoxins urine only +glucose & ketones Depression continue psych meds from [facility] monitor currently stable, no thoughts to harm self or others DVT ppx: mechanical DISPO: admit from [facility] to ICU for close monitoring of hyperglycemia. Bridge likely during the day and hopefully dc back when medically stable. Plan / VTE VTE Prophylaxis Ordered?: Yes GME ATTESTATION GME ATTESTATION My faculty preceptor for this patient encounter was physically present during the encounter and was fully available. All aspects of the patient interview, examination, medical decision making process, and medical care plan development were reviewed and approved by the faculty preceptor. The faculty preceptor is aware and concurs with the plan as stated in the body of this note and will attest to such by his/her cosignature. HAYLIE BAILEY DO Oct 05, 2019 22:05
[2019-10-06 04:48] LABS: BLOOD UREA NITROGEN 14 MG/DL (7-18); CALCIUM LEVEL 9.3 MG/DL (8.5-10.1); CARBON DIOXIDE LEVEL 28 MEQ/L (21-32); CHLORIDE LEVEL 103 MEQ/L (98-107); CREATININE FOR GFR 0.83 MG/DL (0.70-1.30); GLOMERULAR FILTRATION RATE > 60.0 (>60); GLUCOSE, FASTING 174 MG/DL (70-100); MAGNESIUM LEVEL 1.6 MG/DL (1.8-2.4); POTASSIUM SERUM 3.5 MEQ/L (3.5-5.1); SODIUM LEVEL 140 MEQ/L (136-145)
[2019-10-06 06:20] LABS: BLOOD UREA NITROGEN 12 MG/DL (7-18); CALCIUM LEVEL 8.9 MG/DL (8.5-10.1); CARBON DIOXIDE LEVEL 28 MEQ/L (21-32); CHLORIDE LEVEL 105 MEQ/L (98-107); CREATININE FOR GFR 0.76 MG/DL (0.70-1.30); GLOMERULAR FILTRATION RATE > 60.0 (>60); GLUCOSE, FASTING 161 MG/DL (70-100); POTASSIUM SERUM 3.3 MEQ/L (3.5-5.1); SODIUM LEVEL 140 MEQ/L (136-145)
[2019-10-06 07:00] VITALS: BP 129/77
--- NOTE | 2019-10-06 07:10 | IPNPDOC ---
Date Seen The patient was seen on 10/06/19. Progress Note SUBJECTIVE: Patient had difficulty sleeping overnight due to cough. OBJECTIVE PHYSICAL EXAMINATION: VITAL SIGNS: Please see below. GENERAL: male in no acute distress, able to speak in full sentences, not dependent on oxygen HEENT:. Normocephalic, atraumatic, moist mucous membranes CARDIOVASCULAR:, S1, S2. RESPIRATORY: CTAB ABDOMINAL: Positive bowel sounds, nontender to palpation EXTREMITIES:. No edema NEUROLOGICAL: Able to follow instructions without difficulty PSYCHOLOGICAL: Has capacity LABORATORY DATA, IMAGING STUDIES, MICROBIOLOGY: Please see below. ASSESSMENT AND PLAN: Pt is a 28 yo M with DM1, depression presenting with DKA without an anion gap thought to be of viral etiology, found to be CAP vs HAP with fevers, transferred to ICU from [facility] for concern for impending DKA. Monitor in ICU, transfer to medical floor 10/07 Endo: Continue DKA protocol, will start patient on Zosyn and azithromycin (10/06/19) CT revealing left lower lobe consolidation suggesting HAP. Empirically tx with Tamiflu secondary to risk patient. -Old home dosing of Humulog mix 75-25 bid, and prn short-acting humalog in morning and evening -blood cultures and resp panel & UA neg for signs of infection, negative CT reveals LLL consolidation, wel possible pneumonia, f/u Procalcitonin, de- escalate antibiotics accordingly Pulm: see above, hx of tobacco use, if sx worsen consider steroid course/nebs ID: see above Renal: MELISSA, baseline Cr 0.9-1, secondary to dehydration and hyperosmotic state, well continue IV fluids, avoid nephrotoxins, monitor I/Os Psych: Depression, continue psych meds from [facility]; no SI/HI, psych consult to determine if patient needs to go back to [facility] after medical clearance Neuro: stable, monitor CVS: stable, monitor GI: clear liquid diet, advance to DM diet as tolerated, GI ppx Lines: peripheral line UE intact DVT ppx: mechanical, Enox DISPO: plan to dc [facility] when medically stable, keep in ICU today, transfer to medical floor 10/07 VS, I&O, 24H, Fishbone Vital Signs/I&O Vital Signs Date Time Temp Pulse Resp B/P (MAP) Pulse Ox O2 Delivery O2 Flow Rate FiO2 10/06/19 04:00 99.4 92 16 117/62 (80) 96 Room Air I&O- Last 24 Hours up to 6 AM0 10/06/19 06:00 Intake Total 2001.5 ml Output Total 600 ml Balance 1401.5 ml Laboratory Data 24H LABS Laboratory Tests 2 10/05/19 19:40: Anion Gap 8, Glomerular Filtration Rate > 60.0, Calcium Level 9.6, C-Reactive Protein, Quantitative 9.24H, B-Hydroxybutyrate 1.58 10/05/19 20:25: Erythrocyte Sedimentation Rate 45H 10/05/19 21:43: Anion Gap 6L, Glomerular Filtration Rate > 60.0, Calcium Level 9.1 10/05/19 22:06: Bedside Glucose (Misc Panel) 421H 10/05/19 22:10: Blood Gas Bicarbonate Standard 27.6H, Arterial Blood pH 7.529H, Arterial Blood Partial Pressure CO2 31.4L, Arterial Blood Partial Pressure O2 112.8H, Arterial Blood Total CO2 26.6, Arterial Blood HCO3 25.6, Arterial Blood Base Excess 3.4H, Arterial Blood Oxygen Saturation 98.5 10/05/19 23:06: Bedside Glucose (Misc Panel) 237H 10/05/19 23:44: Anion Gap 5L, Glomerular Filtration Rate > 60.0, Calcium Level 9.1 10/05/19 23:58: Bedside Glucose (Misc Panel) 164H 10/06/19 00:57: Bedside Glucose (Misc Panel) 119H 10/06/19 01:52: Anion Gap 6L, Glomerular Filtration Rate > 60.0, Calcium Level 9.5 10/06/19 01:55: Bedside Glucose (Misc Panel) 136H 10/06/19 03:01: Bedside Glucose (Misc Panel) 167H 10/06/19 03:57: Anion Gap 9, Glomerular Filtration Rate > 60.0, Calcium Level 9.3, Phosphorus Level 3.0, Magnesium Level 1.6L 10/06/19 04:02: Bedside Glucose (Misc Panel) 167H 10/06/19 05:03: Bedside Glucose (Misc Panel) 161H 10/06/19 05:47: Anion Gap 7L, Glomerular Filtration Rate > 60.0, Calcium Level 8.9 10/06/19 06:00: Bedside Glucose (Misc Panel) 149H 10/06/19 07:03: Bedside Glucose (Misc Panel) 138H CBC/BMP Laboratory Tests 10/05/19 19:40 10/05/19 21:43 10/05/19 23:44 10/06/19 01:52 10/06/19 03:57 10/06/19 05:47 Microbiology Microbiology 10/05/19 Blood Culture, Received Pending 10/05/19 Blood Culture, Received Pending INDRA ATKINSON MD Oct 06, 2019 07:10
[2019-10-06] MEDS ORDERED: POTASSIUM CHLORIDE 10 MEQ SR TABLET PO ONE (08:00)
[2019-10-06] MEDS: MAG SULF 1GM/100ML (MAG RUN) 1 GM in IV 1 EA IV SCH ×2 (08:07→09:15)
[2019-10-06] MEDS: PIPERACILLIN/TAZOBACTAM SOD 3.375 GM in D5W MINI-BAG PLUS 50 ML IV SCH ×3 (08:07→20:09)
[2019-10-06 08:39] LABS: BLOOD UREA NITROGEN 11 MG/DL (7-18); CALCIUM LEVEL 8.8 MG/DL (8.5-10.1); CARBON DIOXIDE LEVEL 28 MEQ/L (21-32); CHLORIDE LEVEL 105 MEQ/L (98-107); CREATININE FOR GFR 0.74 MG/DL (0.70-1.30); GLOMERULAR FILTRATION RATE > 60.0 (>60); GLUCOSE, FASTING 157 MG/DL (70-100); POTASSIUM SERUM 3.6 MEQ/L (3.5-5.1); SODIUM LEVEL 140 MEQ/L (136-145)
[2019-10-06] MEDS ORDERED: POTASSIUM CHLORIDE INJ 30 MEQ in D5W/0.45% SODIUM CHLORIDE 1,000 ML IV SCH (09:00)
[2019-10-06] MEDS ORDERED: AZITHROMYCIN INJ 500 MG, VIAL MATE ADAPTER 1 EACH in D5W 250 ML IV ONE (09:00)
[2019-10-06] MEDS: busPIRone 10 MG TAB PO SCH ×2 (09:14→21:39)
[2019-10-06] MEDS: PANTOPRAZOLE 20 MG TAB PO SCH (09:14)
[2019-10-06] MEDS: BENZONATATE 100 MG CAP PO SCH ×3 (09:14→21:39)
[2019-10-06] MEDS: SERTRALINE HCL 50 MG TAB PO SCH ×2 (09:15→21:38)
[2019-10-06] MEDS ORDERED: LEVEMIR (INSULIN DETEMIR) 1 UNITS/0.01ML SC SCH ×2 (11:00→18:30)
[2019-10-06] MEDS ORDERED: DEXTROSE 50% 50 ML SYRINGE IV PRN ×2 (11:30→11:45)
[2019-10-06] MEDS ORDERED: GLUCOSE 4 GM CHEW TABLET PO PRN ×2 (11:30→11:45)
[2019-10-06] MEDS ORDERED: GLUCAGON FOR INJ 1 MG VIAL (J1610) SC PRN ×2 (11:30→11:45)
[2019-10-06 12:00] VITALS: BP 117/72
[2019-10-06] MEDS ORDERED: HumaLOG INSULIN (NovoLOG) PER UNIT SC SCH ×2 (12:00→21:00)
[2019-10-06 12:42] LABS: BLOOD UREA NITROGEN 8 MG/DL (7-18); CARBON DIOXIDE LEVEL 28 MEQ/L (21-32); CHLORIDE LEVEL 103 MEQ/L (98-107); CREATININE FOR GFR 0.84 MG/DL (0.70-1.30); GLOMERULAR FILTRATION RATE > 60.0 (>60); GLUCOSE, FASTING 339 MG/DL (70-100); POTASSIUM SERUM 4.2 MEQ/L (3.5-5.1); SODIUM LEVEL 136 MEQ/L (136-145)
[2019-10-06] MEDS: HumaLOG INSULIN (NovoLOG) PER UNIT SC SCH ×3 (13:04→21:39)
[2019-10-06 16:00] VITALS: BP 117/70
[2019-10-06 17:03] LABS: BLOOD UREA NITROGEN 11 MG/DL (7-18); CALCIUM LEVEL 8.8 MG/DL (8.5-10.1); CARBON DIOXIDE LEVEL 26 MEQ/L (21-32); CHLORIDE LEVEL 104 MEQ/L (98-107); CREATININE FOR GFR 1.04 MG/DL (0.70-1.30); GLOMERULAR FILTRATION RATE > 60.0 (>60); POTASSIUM SERUM 4.5 MEQ/L (3.5-5.1); SODIUM LEVEL 134 MEQ/L (136-145)
[2019-10-06 17:04] LABS: GLUCOSE, FASTING 421 MG/DL (70-100)
[2019-10-06] MEDS: SIMVASTATIN 40 MG TAB PO SCH (21:39)
[2019-10-06 21:44] VITALS: BP 132/75
[2019-10-06 21:59] LABS: BLOOD UREA NITROGEN 9 MG/DL (7-18); CALCIUM LEVEL 8.9 MG/DL (8.5-10.1); CARBON DIOXIDE LEVEL 30 MEQ/L (21-32); CHLORIDE LEVEL 103 MEQ/L (98-107); CREATININE FOR GFR 0.99 MG/DL (0.70-1.30); GLOMERULAR FILTRATION RATE > 60.0 (>60); GLUCOSE, FASTING 310 MG/DL (70-100); POTASSIUM SERUM 4.5 MEQ/L (3.5-5.1); SODIUM LEVEL 138 MEQ/L (136-145)
[2019-10-07] VITALS: BP 111/67
[2019-10-07] MEDS: PIPERACILLIN/TAZOBACTAM SOD 3.375 GM in D5W MINI-BAG PLUS 50 ML IV SCH ×4 (02:25→20:37)
[2019-10-07 04:58] VITALS: BP 111/63
[2019-10-07] MEDS: ACETAMINOPHEN TAB 650MG DOSE (2X325MG) PO PRN ×2 (05:01→20:55)
[2019-10-07 05:25] LABS: HEMATOCRIT 39.8 % (42.0-52.0); HEMOGLOBIN 13.5 g/dl (13.5-17.5); RED BLOOD COUNT 4.42 10^6/uL (4.30-6.10); WHITE BLOOD COUNT 5.2 10^3/uL (4.0-10.0)
[2019-10-07 05:26] LABS: MEAN CORPUSCULAR HEMOGLOBIN 30.5 pg (27.0-33.0); MEAN CORPUSCULAR HGB CONC 33.9 g/dl (32.0-36.5); PLATELET COUNT, AUTOMATED 120 10^3/uL (150-450)
--- NOTE | 2019-10-07 07:07 | IPNPDOC ---
Date Seen The patient was seen on 10/07/19. Progress Note SUBJECTIVE: Patient had difficulty sleeping overnight due to cough, +fever. OBJECTIVE PHYSICAL EXAMINATION: VITAL SIGNS: Please see below. GENERAL: male in no acute distress, able to speak in full sentences, not dependent on oxygen, +wet cough, +diaphoresis (ICU room warm) HEENT:. Normocephalic, atraumatic, moist mucous membranes CARDIOVASCULAR:, S1, S2. RESPIRATORY: CTAB ABDOMINAL: Positive bowel sounds, nontender to palpation EXTREMITIES:. No edema NEUROLOGICAL: Able to follow instructions without difficulty PSYCHOLOGICAL: Has capacity LABORATORY DATA, IMAGING STUDIES, MICROBIOLOGY: Please see below. ASSESSMENT AND PLAN: Pt is a 28 yo M with DM1, depression presenting with DKA without an anion gap thought to be of viral etiology, found to be CAP vs HAP wit h fevers, transferred to ICU from [facility] for concern for impending DKA. Monitor in ICU, transfer to medical floor 10/07 Endo: Continue DKA protocol, will start patient on Zosyn and azithromycin (10/06/19) CT revealing left lower lobe consolidation suggesting HAP. Empirically tx with Tamiflu secondary to risk patient. -increased lantus to 30U BID with ISS, once glu controlled plan to transition to home dosing: Humulog mix 75-25 bid, and prn short-acting humalog in morning and evening (defer to pharmacy) -blood cultures and resp panel & UA neg for signs of infection-- negative, CT reveals LLL consolidation--possible HAP, de-escalate antibiotics accordingly Pulm: see above, hx of tobacco use, if sx worsen consider steroid course/nebs ID: see above Renal: MELISSA, baseline Cr 0.9-1, secondary to dehydration and hyperosmotic state, well continue IV fluids, avoid nephrotoxins, monitor I/Os Psych: Depression, continue psych meds from [facility]; spoke with Dr. Xavier, patient does not need to go back to [facility] after medically cleared, was initially admitted for anger issues--no SI/HI, s Neuro: stable, monitor CVS: stable, monitor GI: clear liquid diet, advance to DM diet as tolerated, patient did have an episode of diarrhea, he is on antibiotics and I did start him on GI prophylaxis in ICU: PPI, will DC PPI today, move patient to the floor, check C. difficile and treat accordingly Lines: peripheral line UE intact DVT ppx: mechanical, Enox DISPO: transfer to medical floor 10/07 plan 10/07 control glu, cont IV abx 10/08 transition to home insulin regimen and po Abx anticipated dc 10/09 VS, I&O, 24H, Fishbone Vital Signs/I&O Vital Signs Date Time Temp Pulse Resp B/P (MAP) Pulse Ox O2 Delivery O2 Flow Rate FiO2 10/07/19 04:58 100.4 98 18 111/63 (79) 96 Room Air I&O- Last 24 Hours up to 6 AM 10/07/19 05:59 Intake Total 3987 ml Output Total 4850 ml Balance -863 ml Laboratory Data 24H LABS Laboratory Tests 2 10/06/19 08:05: Bedside Glucose (Misc Panel) 161H 10/06/19 08:06: Anion Gap 7L, Glomerular Filtration Rate > 60.0, Calcium Level 8.8 10/06/19 09:18: Bedside Glucose (Misc Panel) 337H 10/06/19 10:10: Bedside Glucose (Misc Panel) 356H 10/06/19 11:21: Bedside Glucose (Misc Panel) 296H 10/06/19 12:02: Anion Gap 5L, Glomerular Filtration Rate > 60.0, Calcium Level 9.0 10/06/19 16:20: Anion Gap 4L, Glomerular Filtration Rate > 60.0, Calcium Level 8.8 10/06/19 20:53: Anion Gap 5L, Glomerular Filtration Rate > 60.0, Calcium Level 8.9 10/06/19 21:25: Bedside Glucose (Misc Panel) 315H 10/07/19 04:02: Nucleated Red Blood Cells % (auto) 0.0 CBC/BMP Laboratory Tests 10/06/19 08:06 10/06/19 12:02 10/06/19 16:20 10/06/19 20:53 10/07/19 04:02 Microbiology Microbiology 10/05/19 Blood Culture - Preliminary, Resulted No growth after 24 hours . All specim... 10/05/19 Blood Culture - Preliminary, Resulted No growth after 24 hours . All specim... INDRA ATKINSON MD Oct 07, 2019 07:07
[2019-10-07 07:52] LABS: BLOOD UREA NITROGEN 10 MG/DL (7-18); CALCIUM LEVEL 9.1 MG/DL (8.5-10.1); CARBON DIOXIDE LEVEL 30 MEQ/L (21-32); CHLORIDE LEVEL 103 MEQ/L (98-107); CREATININE FOR GFR 0.89 MG/DL (0.70-1.30); GLOMERULAR FILTRATION RATE > 60.0 (>60); GLUCOSE, FASTING 268 MG/DL (70-100); POTASSIUM SERUM 4.3 MEQ/L (3.5-5.1); SODIUM LEVEL 138 MEQ/L (136-145)
[2019-10-07 08:15] VITALS: BP 105/63
[2019-10-07] MEDS: AZITHROMYCIN 250 MG TAB PO SCH (08:48)
[2019-10-07] MEDS: OSELTAMIVIR PHOSPHATE 75 MG CAP (TAMIFLU) PO SCH ×2 (08:49→20:37)
[2019-10-07] MEDS: SERTRALINE HCL 50 MG TAB PO SCH ×2 (08:49→20:38)
[2019-10-07] MEDS: PANTOPRAZOLE 20 MG TAB PO SCH (08:49)
[2019-10-07] MEDS: BENZONATATE 100 MG CAP PO SCH ×3 (08:49→20:37)
[2019-10-07] MEDS: HumaLOG INSULIN (NovoLOG) PER UNIT SC SCH ×4 (08:50→20:54)
[2019-10-07] MEDS ORDERED: LEVEMIR (INSULIN DETEMIR) 1 UNITS/0.01ML SC SCH (09:00)
[2019-10-07] MEDS: busPIRone 10 MG TAB PO SCH ×2 (09:27→20:38)
[2019-10-07 13:48] LABS: CLOSTRIDIUM DIFFICILE PCR NEGATIVE (NEGATIVE)
[2019-10-07 14:05] VITALS: BP 130/78
[2019-10-07 19:55] VITALS: BP 128/75
[2019-10-07] MEDS: SIMVASTATIN 40 MG TAB PO SCH (20:37)
[2019-10-07] MEDS: LEVEMIR (INSULIN DETEMIR) 1 UNITS/0.01ML SC SCH (20:54)
[2019-10-07] MEDS: guaiFENesin DM LIQ 10ML UD PO PRN (21:29)
[2019-10-08] MEDS: PIPERACILLIN/TAZOBACTAM SOD 3.375 GM in D5W MINI-BAG PLUS 50 ML IV SCH ×2 (02:36→08:15)
[2019-10-08] MEDS: guaiFENesin DM LIQ 10ML UD PO PRN (04:17)
[2019-10-08 04:20] VITALS: BP 123/80
[2019-10-08 04:57] LABS: HEMATOCRIT 38.7 % (42.0-52.0); HEMOGLOBIN 13.1 g/dl (13.5-17.5); MEAN CORPUSCULAR HEMOGLOBIN 30.1 pg (27.0-33.0); MEAN CORPUSCULAR HGB CONC 33.9 g/dl (32.0-36.5); PLATELET COUNT, AUTOMATED 133 10^3/uL (150-450); RED BLOOD COUNT 4.35 10^6/uL (4.30-6.10)
[2019-10-08 05:11] LABS: BLOOD UREA NITROGEN 13 MG/DL (7-18); CALCIUM LEVEL 8.9 MG/DL (8.5-10.1); CARBON DIOXIDE LEVEL 32 MEQ/L (21-32); CHLORIDE LEVEL 102 MEQ/L (98-107); CREATININE FOR GFR 0.96 MG/DL (0.70-1.30); GLOMERULAR FILTRATION RATE > 60.0 (>60); GLUCOSE, FASTING 205 MG/DL (70-100); POTASSIUM SERUM 4.1 MEQ/L (3.5-5.1); SODIUM LEVEL 140 MEQ/L (136-145)
[2019-10-08 07:59] VITALS: BP 114/70
[2019-10-08] MEDS: LEVEMIR (INSULIN DETEMIR) 1 UNITS/0.01ML SC SCH (08:15)
[2019-10-08] MEDS: HumaLOG INSULIN (NovoLOG) PER UNIT SC SCH ×2 (08:15→12:55)
[2019-10-08] MEDS: busPIRone 10 MG TAB PO SCH ×2 (08:16→20:51)
[2019-10-08] MEDS: OSELTAMIVIR PHOSPHATE 75 MG CAP (TAMIFLU) PO SCH (08:16)
[2019-10-08] MEDS: SERTRALINE HCL 50 MG TAB PO SCH ×2 (08:16→20:52)
[2019-10-08] MEDS: BENZONATATE 100 MG CAP PO SCH ×3 (08:16→20:52)
[2019-10-08] MEDS: AZITHROMYCIN 250 MG TAB PO SCH (08:16)
[2019-10-08] MEDS: NICOTINE 21MG/24HR 1 EA TRANSDERMAL TD SCH (08:28)
[2019-10-08] MEDS ORDERED: guaiFENesin DM LIQ 10ML UD PO PRN (09:15)
[2019-10-08] MEDS ORDERED: guaiFENesin DM LIQ 10ML UD PO ONE (10:00)
[2019-10-08] MEDS: LevoFLOXacin 750 MG TABLET PO SCH (12:54)
[2019-10-08 14:14] VITALS: BP 124/67
[2019-10-08] MEDS ORDERED: HumaLOG INSULIN (NovoLOG) PER UNIT SC PRN ×2 (16:30)
[2019-10-08 16:34] LABS: HEMOGLOBIN A1c 8.8 %
[2019-10-08 17:30] VITALS: BP 132/93
[2019-10-08] MEDS ORDERED: HumaLOG 75/25 MIX INSULIN PER UNIT SC SCH (17:30)
[2019-10-08 20:05] VITALS: BP 126/82
[2019-10-08] MEDS: SIMVASTATIN 40 MG TAB PO SCH (20:52)
[2019-10-09] MEDS: LevoFLOXacin 750 MG TABLET PO SCH (05:20)
[2019-10-09 05:40] VITALS: BP 108/69
[2019-10-09 06:02] LABS: HEMATOCRIT 36.7 % (42.0-52.0); HEMOGLOBIN 12.6 g/dl (13.5-17.5); MEAN CORPUSCULAR HEMOGLOBIN 30.4 pg (27.0-33.0); MEAN CORPUSCULAR HGB CONC 34.3 g/dl (32.0-36.5); MEAN CORPUSCULAR VOLUME 88.6 fl (80.0-96.0); PLATELET COUNT, AUTOMATED 163 10^3/uL (150-450); RED BLOOD COUNT 4.14 10^6/uL (4.30-6.10); WHITE BLOOD COUNT 4.9 10^3/uL (4.0-10.0)
[2019-10-09 06:24] LABS: BLOOD UREA NITROGEN 9 MG/DL (7-18); CALCIUM LEVEL 9.4 MG/DL (8.5-10.1); CARBON DIOXIDE LEVEL 34 MEQ/L (21-32); CHLORIDE LEVEL 103 MEQ/L (98-107); CREATININE FOR GFR 0.88 MG/DL (0.70-1.30); GLOMERULAR FILTRATION RATE > 60.0 (>60); GLUCOSE, FASTING 114 MG/DL (70-100); POTASSIUM SERUM 4.1 MEQ/L (3.5-5.1); SODIUM LEVEL 140 MEQ/L (136-145)
[2019-10-09] MEDS ORDERED: NICO21PAT TD (07:23)
[2019-10-09] MEDS ORDERED: LEVA750T7 PO (07:23)
[2019-10-09] MEDS ORDERED: HumaLOG 75/25 MIX INSULIN PER UNIT SC SCH (07:30)
[2019-10-09] MEDS ORDERED: guaiFENesin DM LIQ 10ML UD PO ONE (08:00)
[2019-10-09] MEDS: busPIRone 10 MG TAB PO SCH (08:25)
[2019-10-09] MEDS: BENZONATATE 100 MG CAP PO SCH (08:25)
[2019-10-09] MEDS: SERTRALINE HCL 50 MG TAB PO SCH (08:25)
[2019-10-09] MEDS: NICOTINE 21MG/24HR 1 EA TRANSDERMAL TD SCH (08:25)
--- NOTE | 2019-10-09 12:36 | IPN ---
DATE: 10/08/2019 Patient still complains of cough productive of yellow-white sputum, thick mucoid in appearance. No fever or chills overnight. Anion gap is low. Patient says that he follows at [facility] in [place] since he was diagnosed with type 1 diabetes at the age of 12. He is usually on a sliding scale pre- and postprandial and has been doing well with improving A1c level. Last one was checked 3 months ago at 8.6, which has improved from a higher A1c, according to the patient. He currently lives at [facility] ([facility]) and may be discharged back there, according to patient and family services (PFS). His parents, mother and father, have a home in [place] and are both currently residing there. He otherwise feels confident that he can take care of his insulin here and is usually very highly functioning autistic with Asperger syndrome. Patient is able to tell me at the bedside exactly how much he is to give himself. He has requested continuous glucose monitoring, but [facility] says that he still needs to check fingersticks twice a day. Patient is compliant with his medication and says that he does check his sugars up to four times a day at [facility] before food and nightly and does follow the sliding scale. He had a temperature of 100.5 yesterday, and current temperature of 98.4 on antibiotics for pneumonia. Currently, switched to Levaquin 750 daily from prior Zosyn 3.75 grams every 6 hourly. Patient did have four bowel movements yesterday, one bowel movement today. Otherwise, says that he has had no nausea or vomiting and tolerating his diet with no complaints of abdominal pain. VITAL SIGNS: Temperature 98.4, pulse 100, respiratory rate 18, blood pressure 124/67, 99% on room air. Generally, awake, alert, oriented to person, place, and time. Answering questions appropriately. No use of respiratory accessory muscles. No jugular venous distention, thyromegaly, or cervical lymphadenopathy. Lungs are clear to auscultation. No wheezing, rales, or rhonchi. Heart: S1, S2, sinus rhythm. No murmurs, rubs, or gallops. Abdomen: Soft, nontender, nondistended. Positive bowel sounds all four quadrants. No rebound, guarding, or hepatosplenomegaly. Extremities: No clubbing, cyanosis, or pitting edema. Skin: Warm, dry, well perfused and pink in color. White count 4.0, hemoglobin 13, hematocrit 38, platelet count of 133, previous platelet count of 120. Sodium 140, potassium 4.1, chloride 102, bicarbonate 32, BUN 13, creatinine 0.96, glucose of 205, A1c is pending. Fingersticks 221, 356, 261. Tolerating a consistent carbohydrate diet. Microbiology: Respiratory panel, sputum culture pending. Blood cultures are negative. CT abdomen and pelvis: Left lower lobe pneumonia. ASSESSMENT AND PLAN: This is a 28-year-old male with history of Asperger syndrome, type 1 diabetes, depression, vasectomy, ingrown toenail, presented with complaint of cough, found to have a left lower lobe pneumonia and diabetic ketoacidosis. ACTIVE ISSUES: 1. Diabetic ketoacidosis. Resolved. Patient was on insulin drip, was placed on long-acting insulin, but currently transitioned to his home dose as given by [facility] in [facility]. Check A1c and resume on 70/30 insulin sliding scale and lispro insulin. He is now resumed on a consistent carbohydrate diet, sliding scale with coverage. 2. Pneumonia. Currently on Levaquin. He did have a low-grade temperature yesterday. He currently still complains of a cough productive of white sputum. We will continue antibiotics for a total of 7 days. 3. Depression. Resumed on his home medications. 4. Active smoking. Tobacco cessation counseling has been provided and nicotine patch given. [facility] CENTERClarence
[2019-10-10 14:06] LABS: BODY FLUID CULTURE Not Indicated (.); LEGIONELLA ANTIGEN URINE Negative (Negative); ORGANISM ID Not indicated. (.); SPECIMEN SOURCE Urine (.); URINE STREP PNEUMONIAE ANTIGEN Negative (Negative)
--- NOTE | 2019-10-10 20:08 | DSES ---
DATE OF ADMISSION: 10/05/2019 DATE OF DISCHARGE: 10/09/2019 PRIMARY DISCHARGE DIAGNOSES: 1. Diabetic ketoacidosis secondary to pneumonia. 2. Community-acquired pneumonia. 3. History of depression. 4. Active tobacco use with cigarette smoking. Tobacco cessation counseling has been provided. DISCHARGE MEDICATIONS: - Levaquin 750 daily for 5 days - nicotine patch 21 mg daily - Align 4 mg at bedtime - buspirone 30 mg twice a day - vitamin D 2000 units daily - hypoglycemic protocol and Lispro insulin sliding scale per [facility], 75/25 Kwik Pen before food, at bedtime, per [facility] - sertraline 150 mg twice a day - simvastatin 40 mg at bedtime DISCHARGE INSTRUCTIONS: Patient is to follow with [facility] in [place] and to call them if glucose level is greater than 250 or less than 70. HOSPITAL COURSE: This is a 28-year-old male with a history of type 1 diabetes diagnosed at the age of 12, depression. Lives at [facility] ([facility] Was found to have intermittent fevers of 102, uncontrolled glucose, which has worsened for the past few days with a cough productive of white, thick sputum. Patient was found to be in diabetic ketoacidosis and was admitted to the intensive care unit. White count was normal. A1c was 8.8. He was placed on an insulin drip until the anion gap was closed and was transitioned over to his home dose of insulin sliding scale. [facility] was contacted to ask whether they would have any changes to his home regimen. He was kept on the same dose of medications, remained stable, and was treated with Levaquin for a community-acquired pneumonia. Sputum culture on 10/07/2019 showed normal mike. Respiratory panel was negative. Blood cultures were negative for 72 hours. Patient was kept on a consistent-carbohydrate diet, ambulated well, saturating at 96% on room air, and subsequently discharged. LABORATORY DATA ON DISCHARGE: White count 4.9, hemoglobin 12.6, hematocrit 36.7, platelet count 163. Sodium 140, potassium 4.1, chloride 103, bicarbonate 34, BUN 9, creatinine 0.88. Respiratory panel is negative. Sputum culture: Normal mike October 07. Blood cultures, two sets, on October [address] abdomen and pelvis on 10/05/2019: Left lower lobe pneumonia.
== END 2019-10-09 10:05 | disposition home or self-care (01) | DRG 420 ==
LOC: M ED INP 19:46 → M ICU 21:10 → M MS5PR 10-08 17:02
PROVIDERS: ADMIT Internal Medicine; ATTEND General Practice
DX: E10.10 Type 1 diabetes mellitus with ketoacidosis without coma (principal); J18.9 Pneumonia, unspecified organism; N17.9 Acute kidney failure, unspecified; F32.9 Major depressive disorder, single episode, unspecified; F17.210 Nicotine dependence, cigarettes, uncomplicated; Z79.899 Other long term (current) drug therapy

== ENCOUNTER → 2020-03-24 | Outpatient (CLI) | payer OTHER, MEDICARE, MEDICAID ==
[~2020-03-24] MED LIST changes: +NICO21PAT TD
== END ==
LOC: M LABSMTC 12:29
PROVIDERS: ATTEND Family Medicine
DX: Z11.59 Encounter for screening for other viral diseases (principal)
CPT/HCPCS: C9803; U0003

== ENCOUNTER → 2020-04-21 | Outpatient (CLI) | payer MEDICARE, BC, OTHER, MEDICAID | LOC: M LABSMTC 13:43 | PROVIDERS: ATTEND Family Medicine | DX: Z03.818 Encounter for observation for suspected exposure to other biological agents ruled out (principal) | CPT/HCPCS: C9803; U0003 ==

== ENCOUNTER → 2022-03-02 | Outpatient (CLI) | payer MEDICARE, BC, OTHER | LOC: M WUC 13:06 | PROVIDERS: ATTEND Student in an Organized Health Care Education/Training Program | DX: S82.54XA Nondisplaced fracture of medial malleolus of right tibia, initial encounter for closed fracture (principal); X58.XXXA Exposure to other specified factors, initial encounter; Y92.89 Other specified places as the place of occurrence of the external cause; Y93.89 Activity, other specified; Y99.8 Other external cause status ==

== ENCOUNTER 2023-05-16 17:25 | Emergency (ER) | payer MEDICARE, BC, OTHER ==
[~2023-05-16] VITALS: Ht 175.3 cm; Wt 95.5 kg
[~2023-05-16 17:25] MED LIST changes: +SIMV-252 PO; -ZOCO10TA PO
[2023-05-16] MEDS ORDERED: IBUP200T46 PO (17:36)
[2023-05-16 20:06] VITALS: BP 131/84; TEMP 97.9; O2SAT 100
== END 2023-05-16 20:08 | disposition home or self-care (01) ==
LOC: M ED 17:25
DX: S23.9XXA Sprain of unspecified parts of thorax, initial encounter (principal); Y04.0XXA Assault by unarmed brawl or fight, initial encounter; Y07.11 Biological father, perpetrator of maltreatment and neglect

== ENCOUNTER → 2023-07-07 | Outpatient (REF) | payer MEDICARE, BC, OTHER, MEDICAID ==
[~2023-07-07] MED LIST changes: +IBUP200T46 PO
[2023-07-07 12:32] LABS: C REACTIVE PROTEIN QUANTITATIV < 0.40 MG/DL (<1.0)
[2023-07-07 12:34] LABS: RHEUMATOID FACTOR QUANT < 3.5 IU/ML (<14)
[2023-07-10 13:07] LABS: ANTINUCLEAR ANTIBODIES DIRECT Negative (Negative)
== END ==
LOC: M LAB REF 11:31
PROVIDERS: ATTEND Physician Assistant Medical
DX: M25.50 Pain in unspecified joint (principal)

== ENCOUNTER → 2023-09-15 | Day surgery (SDC) | payer MEDICARE, BC, OTHER, MEDICAID ==
[~2023-09-15] VITALS: Ht 175.3 cm; Wt 101.0 kg
[~2023-09-15] MED LIST changes: +ACET1TAB55 PO; +BACITRACIN OINTMENT 30GM TUBE As Ordered ONE; +CVS10CAP7 PO; +HUMA100I5; +LANTINJ4 SC; +LIDOCAINE 1% MDV 20ML VIAL SQ PRN; +LIDOCAINE W/EPINEPHRINE 1% 20ML VIAL XX ONE; +LR 1,000 ML IV ONE; +MUPIROCIN 2% OINT 22 GM TUBE As Ordered ONE; +SERT50TA29 PO; +SODIUM BICARBONATE 8.4% INJ 50MEQ 50ML VIAL XX ONE; +VITA100093 PO
[2023-09-15 11:45] VITALS: BP 165/106; TEMP 98; O2SAT 96
== END | disposition home or self-care (01) ==
LOC: M SDC 08:39
PROVIDERS: ATTEND Orthopaedic Surgery Hand Surgery
DX: M65.351 Trigger finger, right little finger (principal); E11.9 Type 2 diabetes mellitus without complications; Z79.4 Long term (current) use of insulin; Z79.899 Other long term (current) drug therapy; Z87.891 Personal history of nicotine dependence

== ENCOUNTER 2024-09-22 15:35 | Inpatient (IN) | payer MEDICARE, BC, OTHER, MEDICAID ==
[2024-09-22] VITALS (9 sets, daily range): BP systolic 112–153; BP diastolic 59–99; TEMP 98.8; O2SAT 97–100
[~2024-09-22] VITALS: Ht 175.3 cm; Wt 95.7 kg
[~2024-09-22 15:35] MED LIST changes: -BACITRACIN OINTMENT 30GM TUBE As Ordered ONE; -HUMA100I5; +HUMA100I5 INJ; -LIDOCAINE 1% MDV 20ML VIAL SQ PRN; -LIDOCAINE W/EPINEPHRINE 1% 20ML VIAL XX ONE; -LR 1,000 ML IV ONE; -MUPIROCIN 2% OINT 22 GM TUBE As Ordered ONE; -SODIUM BICARBONATE 8.4% INJ 50MEQ 50ML VIAL XX ONE
[2024-09-22] MEDS ORDERED: METF-838 PO (15:49)
[2024-09-22] MEDS: ONDANSETRON 4MG 2ML VIAL IV ONE (16:27)
[2024-09-22] MEDS: HumuLIN R (REGULAR) INSULIN (NovoLIN R) **100U/ML** PER UNIT IV ONE (16:27)
[2024-09-22 16:29] LABS: BASO # 0.1 10^3/uL (0.0-0.2); BASO % 0.6 % (0.0-1.0); EOS # 0.1 10^3/uL (0.0-0.5); EOS % 0.6 % (0.0-3.0); HEMOGLOBIN 16.6 g/dl (13.5-17.5); LYMPH # 1.1 10^3/uL (1.5-5.0); LYMPH % 9.3 % (24.0-44.0); MEAN CORPUSCULAR HEMOGLOBIN 31.8 pg (27.0-33.0); MEAN CORPUSCULAR HGB CONC 35.3 g/dl (32.0-36.5); MONO # 0.7 10^3/uL (0.0-0.8); MONO % 5.8 % (2.0-8.0); NEUTROPHILS # 9.9 10^3/uL (1.5-8.5); NEUTROPHILS % 83.1 % (36.0-66.0); PLATELET COUNT, AUTOMATED 236 10^3/uL (150-450); RED BLOOD COUNT 5.22 10^6/uL (4.30-6.10); WHITE BLOOD COUNT 11.9 10^3/uL (4.0-10.0)
[2024-09-22 16:47] LABS: HEMOGLOBIN A1c 9.9 % (4.0-6.0)
[2024-09-22 16:49] LABS: LIPASE 22 U/L (12-53)
[2024-09-22 16:51] LABS: ALBUMIN 4.7 G/DL (3.2-5.2); ALKALINE PHOSPHATASE 127 U/L (40-129); ALT/SGPT 28 U/L (7.0-40); AST/SGOT 14 U/L (<34); BILIRUBIN,DIRECT < 0.1 MG/DL (<0.4); BILIRUBIN,TOTAL 0.4 MG/DL (0.3-1.2); TOTAL PROTEIN 8.1 G/DL (5.7-8.2)
[2024-09-22 16:55] LABS: ACETONE/KETONE > 4.50 MMOL/L (0.02-0.27)
[2024-09-22 16:57] LABS: ABG BASE EXCESS -15.1 (-2.0-2.0); ABG HCO3 9.7 MMOL/L (22.0-26.0); ABG O2 SATURATION 98.9 % (95.0-99.0); ABG PARTIAL PRESSURE CO2 22.4 mmHg (35.0-45.0); ABG STANDARD HCO3 13.5 MMOL/L. (22.0-26.0); ABG TOTAL CO2 10.4 MMOL/L (22.0-29.0); ABG pH (ARTERIAL) 7.255 UNITS (7.350-7.450)
[2024-09-22 16:59] LABS: OSMOLALITY SERUM 313 MOSM/KG (275-295)
[2024-09-22 17:33] LABS: BLOOD UREA NITROGEN 23 MG/DL (9-23); CARBON DIOXIDE LEVEL 12 MMOL/L (20-31); CHLORIDE LEVEL 99 MMOL/L (98-107); CREATININE FOR GFR 1.01 MG/DL (0.70-1.30); GLOMERULAR FILTRATION RATE > 60.0 (>60); GLUCOSE, FASTING 318 MG/DL (60-100); POTASSIUM SERUM 4.3 MMOL/L (3.5-5.1); SODIUM LEVEL 134 MMOL/L (136-145)
[2024-09-22] MEDS: NS 1,000 ML IV ONE (17:36)
[2024-09-22 19:48] LABS: ALBUMIN 4.3 G/DL (3.2-5.2); ALKALINE PHOSPHATASE 111 U/L (40-129); ALT/SGPT 24 U/L (7.0-40); AST/SGOT 13 U/L (<34); BILIRUBIN,TOTAL 0.6 MG/DL (0.3-1.2); BLOOD UREA NITROGEN 21 MG/DL (9-23); CALCIUM LEVEL 9.4 MG/DL (8.5-10.1); CARBON DIOXIDE LEVEL 16 MMOL/L (20-31); CHLORIDE LEVEL 100 MMOL/L (98-107); CREATININE FOR GFR 0.84 MG/DL (0.70-1.30); GLOMERULAR FILTRATION RATE > 60.0 (>60); GLUCOSE, FASTING 122 MG/DL (60-100); PHOSPHORUS LEVEL 3.7 MG/DL (2.5-4.9); POTASSIUM SERUM 4.1 MMOL/L (3.5-5.1); SODIUM LEVEL 133 MMOL/L (136-145); TOTAL PROTEIN 7.3 G/DL (5.7-8.2)
[2024-09-22] MEDS: INSULIN REGULAR IN 0.9 % NACL 100 UNIT in IV 1 EA IV SCH (20:03)
[2024-09-22] MEDS: KCL 40MEQ IN D5/0.45NS 1000ML 1,000 ML IV SCH (20:04)
[2024-09-22] MEDS ORDERED: ZOLO100T PO (21:12)
[2024-09-22] MEDS: INSULIN IV RATE CHANGE DOCUMENTATION ML/HR XX SCH (21:13)
[2024-09-22] MEDS ORDERED: NOVOINJ3 SC (21:13)
[2024-09-22] MEDS ORDERED: HOME MED LIST COMPLETE! XX SCH (21:15)
[2024-09-22 22:38] LABS: ALKALINE PHOSPHATASE 98 U/L (40-129); ALT/SGPT 20 U/L (7.0-40); AST/SGOT 12 U/L (<34); BILIRUBIN,TOTAL 0.6 MG/DL (0.3-1.2); BLOOD UREA NITROGEN 14 MG/DL (9-23); CALCIUM LEVEL 8.7 MG/DL (8.5-10.1); CARBON DIOXIDE LEVEL 14 MMOL/L (20-31); CHLORIDE LEVEL 103 MMOL/L (98-107); GLOMERULAR FILTRATION RATE > 60.0 (>60); GLUCOSE, FASTING 161 MG/DL (60-100); POTASSIUM SERUM 4.3 MMOL/L (3.5-5.1); SODIUM LEVEL 132 MMOL/L (136-145)
[2024-09-22] MEDS: LEVEMIR (INSULIN DETEMIR) 1 UNITS/0.01ML SC ONE (23:20)
[2024-09-23] VITALS (10 sets, daily range): BP systolic 118–137; BP diastolic 70–94; TEMP 97.9–98.7; O2SAT 97–100
[2024-09-23 00:44] LABS: ALBUMIN 3.7 G/DL (3.2-5.2); ALKALINE PHOSPHATASE 91 U/L (40-129); ALT/SGPT 18 U/L (7.0-40); AST/SGOT 11 U/L (<34); BILIRUBIN,TOTAL 0.6 MG/DL (0.3-1.2); BLOOD UREA NITROGEN 13 MG/DL (9-23); CALCIUM LEVEL 8.3 MG/DL (8.5-10.1); CARBON DIOXIDE LEVEL 17 MMOL/L (20-31); CHLORIDE LEVEL 104 MMOL/L (98-107); CREATININE FOR GFR 0.66 MG/DL (0.70-1.30); GLOMERULAR FILTRATION RATE > 60.0 (>60); GLUCOSE, FASTING 257 MG/DL (60-100); PHOSPHORUS LEVEL 2.8 MG/DL (2.5-4.9); SODIUM LEVEL 132 MMOL/L (136-145); TOTAL PROTEIN 6.8 G/DL (5.7-8.2)
[2024-09-23] MEDS ORDERED: GLUCOSE 4 GM CHEW PO PRN (01:50)
[2024-09-23] MEDS ORDERED: GLUCAGON INJ 1MG VIAL SC PRN (01:50)
[2024-09-23] MEDS ORDERED: DEXTROSE 50% 50ML SYRINGE IV PRN (01:50)
[2024-09-23 02:44] LABS: ALBUMIN 3.8 G/DL (3.2-5.2); ALKALINE PHOSPHATASE 94 U/L (40-129); ALT/SGPT 20 U/L (7.0-40); AST/SGOT 12 U/L (<34); BILIRUBIN,TOTAL 0.6 MG/DL (0.3-1.2); BLOOD UREA NITROGEN 14 MG/DL (9-23); CALCIUM LEVEL 8.6 MG/DL (8.5-10.1); CARBON DIOXIDE LEVEL 18 MMOL/L (20-31); CHLORIDE LEVEL 102 MMOL/L (98-107); CREATININE FOR GFR 0.66 MG/DL (0.70-1.30); GLOMERULAR FILTRATION RATE > 60.0 (>60); GLUCOSE, FASTING 338 MG/DL (60-100); POTASSIUM SERUM 4.3 MMOL/L (3.5-5.1); SODIUM LEVEL 130 MMOL/L (136-145); TOTAL PROTEIN 6.9 G/DL (5.7-8.2)
[2024-09-23 05:21] LABS: ALBUMIN 3.7 G/DL (3.2-5.2); ALKALINE PHOSPHATASE 94 U/L (40-129); ALT/SGPT 21 U/L (7.0-40); AST/SGOT 11 U/L (<34); BILIRUBIN,TOTAL 0.4 MG/DL (0.3-1.2); BLOOD UREA NITROGEN 13 MG/DL (9-23); CALCIUM LEVEL 8.9 MG/DL (8.5-10.1); CARBON DIOXIDE LEVEL 18 MMOL/L (20-31); CHLORIDE LEVEL 103 MMOL/L (98-107); CREATININE FOR GFR 0.65 MG/DL (0.70-1.30); GLOMERULAR FILTRATION RATE > 60.0 (>60); GLUCOSE, FASTING 235 MG/DL (60-100); PHOSPHORUS LEVEL 2.8 MG/DL (2.5-4.9); POTASSIUM SERUM 4.5 MMOL/L (3.5-5.1); SODIUM LEVEL 132 MMOL/L (136-145); TOTAL PROTEIN 6.4 G/DL (5.7-8.2)
[2024-09-23] MEDS: ENOXAPARIN 40MG/0.4ML SYRINGE (J1650 PER 10MG) SC SCH (08:48)
[2024-09-23] MEDS: INSULIN LISPRO (NovoLOG) PER UNIT SC SCH ×2 (08:49→21:14)
[2024-09-23] MEDS: SERTRALINE HCL 50 MG TAB PO SCH (08:50)
[2024-09-23] MEDS: VITAMIN D 1,000 INTERNATIONAL UNITS TABLET PO SCH (08:50)
[2024-09-23] MEDS: LEVEMIR (INSULIN DETEMIR) 1 UNITS/0.01ML SC SCH (08:50)
[2024-09-23] MEDS: busPIRone 5 MG TAB PO SCH (08:50)
[2024-09-23] MEDS: PANTOPRAZOLE 40MG VIAL IV SCH (08:50)
[2024-09-23] MEDS: SODIUM BICARBONATE 325 MG TAB PO SCH (08:50)
[2024-09-23] MEDS ORDERED: PANTOPRAZOLE 40MG TAB (PROTONIX) PO SCH (09:00)
[2024-09-23] MEDS ORDERED: LEVEMIR (INSULIN DETEMIR) 1 UNITS/0.01ML SC SCH (09:00)
[2024-09-23] MEDS: NEUTRA-PHOS 1.5 GM PACKET PO SCH (12:19)
[2024-09-23] MEDS: NS 1,000 ML IV ONE (14:03)
[2024-09-23 14:40] LABS: BLOOD UREA NITROGEN 11 MG/DL (9-23); CALCIUM LEVEL 9.2 MG/DL (8.5-10.1); CARBON DIOXIDE LEVEL 23 MMOL/L (20-31); CHLORIDE LEVEL 105 MMOL/L (98-107); CREATININE FOR GFR 0.56 MG/DL (0.70-1.30); GLOMERULAR FILTRATION RATE > 60.0 (>60); GLUCOSE, FASTING 128 MG/DL (60-100); POTASSIUM SERUM 3.8 MMOL/L (3.5-5.1); SODIUM LEVEL 135 MMOL/L (136-145)
[2024-09-23] MEDS: SIMVASTATIN 40 MG TAB PO SCH (21:13)
[2024-09-24 03:10] VITALS: BP 130/89; TEMP 97.7; O2SAT 99
[2024-09-24 05:35] LABS: BLOOD UREA NITROGEN 7 MG/DL (9-23); CARBON DIOXIDE LEVEL 26 MMOL/L (20-31); CHLORIDE LEVEL 106 MMOL/L (98-107); CREATININE FOR GFR 0.56 MG/DL (0.70-1.30); GLOMERULAR FILTRATION RATE > 60.0 (>60); GLUCOSE, FASTING 182 MG/DL (60-100); POTASSIUM SERUM 3.5 MMOL/L (3.5-5.1); SODIUM LEVEL 137 MMOL/L (136-145)
[2024-09-24] MEDS: PANTOPRAZOLE 40MG TAB (PROTONIX) PO SCH (09:14)
[2024-09-24] MEDS ORDERED: PANT40TA29 PO (09:46)
[2024-09-24] MEDS: FLUZONE VACCINE TRIVALENT PF(2024-25) 0.5ML SYRINGE IM.IMMUN ONE (11:38)
== END 2024-09-24 12:10 | disposition home or self-care (01) | DRG 638 ==
LOC: M ED 15:35 → M ED INP 18:40 → M ICU 19:51 → M MSPAV 09-23 14:14
PROVIDERS: ADMIT Internal Medicine Pulmonary Disease; ATTEND Internal Medicine
DX: E10.10 Type 1 diabetes mellitus with ketoacidosis without coma (principal); E87.1 Hypo-osmolality and hyponatremia; F84.5 Asperger's syndrome; F39 Unspecified mood [affective] disorder; E83.39 Other disorders of phosphorus metabolism; E10.65 Type 1 diabetes mellitus with hyperglycemia; E55.9 Vitamin D deficiency, unspecified; K21.9 Gastro-esophageal reflux disease without esophagitis; E66.9 Obesity, unspecified; F43.10 Post-traumatic stress disorder, unspecified; F90.9 Attention-deficit hyperactivity disorder, unspecified type; Z87.891 Personal history of nicotine dependence; Z68.31 Body mass index [BMI] 31.0-31.9, adult; Z79.899 Other long term (current) drug therapy; Z79.4 Long term (current) use of insulin

== ENCOUNTER 2024-11-09 17:59 | Emergency (ER) | payer MEDICARE, BC, OTHER, MEDICAID ==
[~2024-11-09] VITALS: Ht 175.3 cm; Wt 95.7 kg
[~2024-11-09 17:59] MED LIST changes: -ALIG4CAP PO; +ALIG4CAP3 PO; +METF-838 PO; +NOVOINJ3 SC; +PANT40TA29 PO; +ZOLO100T PO
[2024-11-09 18:42] LABS: VENOUS BASE EXCESS -26.6 (-2.0-2.0); VENOUS HCO3 5.6 MMOL/L (23.0-27.0); VENOUS O2 SATURATION 73.4 % (60.0-80.0); VENOUS PARTIAL PRESSURE CO2 28.8 mmHg (38.0-50.0); VENOUS PARTIAL PRESSURE O2 47.3 mmHg (30.0-50.0); VENOUS PH 6.907 UNITS (7.330-7.430); VENOUS STANDARD HCO3 6.9 MMOL/L; VENOUS TOTAL CO2 6.5 MMOL/L (24.0-28.0)
[2024-11-09 18:49] LABS: BASO # 0.1 10^3/uL (0.0-0.2); BASO % 0.3 % (0.0-1.0); HEMATOCRIT 47.2 % (42.0-52.0); HEMOGLOBIN 15.2 g/dl (13.5-17.5); LYMPH # 0.8 10^3/uL (1.5-5.0); LYMPH % 5.8 % (24.0-44.0); MEAN CORPUSCULAR HEMOGLOBIN 30.6 pg (27.0-33.0); MEAN CORPUSCULAR HGB CONC 32.2 g/dl (32.0-36.5); MEAN CORPUSCULAR VOLUME 95.2 fl (80.0-96.0); MONO # 1.1 10^3/uL (0.0-0.8); MONO % 7.9 % (2.0-8.0); NEUTROPHILS # 12.2 10^3/uL (1.5-8.5); NEUTROPHILS % 84.9 % (36.0-66.0); PLATELET COUNT, AUTOMATED 195 10^3/uL (150-450); RED BLOOD COUNT 4.96 10^6/uL (4.30-6.10); WHITE BLOOD COUNT 14.4 10^3/uL (4.0-10.0)
[2024-11-09 19:13] LABS: LIPASE 19 U/L (12-53)
[2024-11-09 19:19] LABS: ETHYL ALCOHOL (ETHANOL) < 0.003 % (0.000-0.010)
[2024-11-09] MEDS: NS (Normal Saline) 0.9% 1,000 ML IV ONE (19:24)
[2024-11-09 19:25] LABS: ACETONE/KETONE > 4.50 MMOL/L (0.02-0.27); ALBUMIN 4.7 G/DL (3.2-5.2); ALKALINE PHOSPHATASE 99 U/L (40-129); ALT/SGPT 25 U/L (7.0-40); AST/SGOT 18 U/L (<34); BILIRUBIN,DIRECT < 0.1 MG/DL (<0.4); BILIRUBIN,TOTAL 0.3 MG/DL (0.3-1.2); BLOOD UREA NITROGEN 24 MG/DL (9-23); CALCIUM LEVEL 9.2 MG/DL (8.5-10.1); CARBON DIOXIDE LEVEL < 10.0 MMOL/L (20-31); CHLORIDE LEVEL 93 MMOL/L (98-107); CK-MB VALUE MASS 2.1 NG/ML (<3.6); CPK CREATINE PHOSPHOKINASE 676 U/L (46-171); CREATININE FOR GFR 1.24 MG/DL (0.70-1.30); GLOMERULAR FILTRATION RATE > 60.0 (>60); GLUCOSE, FASTING 508 MG/DL (60-100); MAGNESIUM LEVEL 2.6 MG/DL (1.8-2.4); MB/CK RELATIVE INDEX 0.31 (< OR =4); POTASSIUM SERUM 5.7 MMOL/L (3.5-5.1); SODIUM LEVEL 130 MMOL/L (136-145); TOTAL PROTEIN 8.4 G/DL (5.7-8.2)
[2024-11-09] MEDS: HumuLIN R (REGULAR) INSULIN (NovoLIN R) **100U/ML** PER UNIT IV ONE (19:25)
[2024-11-09 19:30] LABS: HEMOGLOBIN A1c 9.3 % (4.0-6.0)
[2024-11-09 19:32] LABS: OSMOLALITY SERUM 322 MOSM/KG (275-295)
[2024-11-09 19:45] LABS: KETONE, URINE AUTO RFX 2+ mg/dL (NEGATIVE); LEUKOCYTE ESTERASE UR AUTO RFX NEGATIVE (NEGATIVE); MUCUS, URINE RFX SMALL (NEGATIVE)
[2024-11-09 20:46] LABS: VENOUS BASE EXCESS -23.1 (-2.0-2.0); VENOUS PARTIAL PRESSURE CO2 28.3 mmHg (38.0-50.0); VENOUS PARTIAL PRESSURE O2 55.8 mmHg (30.0-50.0); VENOUS STANDARD HCO3 8.6 MMOL/L; VENOUS TOTAL CO2 7.8 MMOL/L (24.0-28.0)
[2024-11-09] MEDS: ONDANSETRON 4MG 2ML VIAL IV ONE (20:46)
[2024-11-09 21:15] LABS: CK-MB VALUE MASS 2.5 NG/ML (<3.6)
[2024-11-09 21:16] LABS: CPK CREATINE PHOSPHOKINASE 859 U/L (46-171); MB/CK RELATIVE INDEX 0.29 (< OR =4)
[2024-11-09 21:26] LABS: BLOOD UREA NITROGEN 22 MG/DL (9-23); CALCIUM LEVEL 8.3 MG/DL (8.5-10.1); CARBON DIOXIDE LEVEL < 10.0 MMOL/L (20-31); CHLORIDE LEVEL 103 MMOL/L (98-107); CREATININE FOR GFR 1.17 MG/DL (0.70-1.30); GLOMERULAR FILTRATION RATE > 60.0 (>60); GLUCOSE, FASTING 313 MG/DL (60-100); SODIUM LEVEL 136 MMOL/L (136-145)
[2024-11-09] MEDS: OSELTAMIVIR PHOSPHATE 75 MG CAP (TAMIFLU) PO ONE (22:32)
[2024-11-09 22:48] LABS: VENOUS BASE EXCESS -20.8 (-2.0-2.0); VENOUS HCO3 8.2 MMOL/L (23.0-27.0); VENOUS O2 SATURATION 72.4 % (60.0-80.0); VENOUS PARTIAL PRESSURE CO2 29.4 mmHg (38.0-50.0); VENOUS PARTIAL PRESSURE O2 38.8 mmHg (30.0-50.0); VENOUS PH 7.065 UNITS (7.330-7.430); VENOUS STANDARD HCO3 9.5 MMOL/L; VENOUS TOTAL CO2 9.1 MMOL/L (24.0-28.0)
[2024-11-09] MEDS ORDERED: ONDA-284 PO (23:56)
[2024-11-09] MEDS ORDERED: VENTAER INH (23:56)
[2024-11-09] MEDS ORDERED: OSEL75CA PO (23:56)
[2024-11-10 00:15] VITALS: BP 130/61; TEMP 99; O2SAT 100
== END 2024-11-10 00:33 | disposition home or self-care (01) ==
LOC: M ED 17:59
DX: E10.65 Type 1 diabetes mellitus with hyperglycemia (principal); J09.X2 Influenza due to identified novel influenza A virus with other respiratory manifestations; Z20.89 Contact with and (suspected) exposure to other communicable diseases; F84.5 Asperger's syndrome; E66.9 Obesity, unspecified; K21.9 Gastro-esophageal reflux disease without esophagitis; E55.9 Vitamin D deficiency, unspecified; F43.10 Post-traumatic stress disorder, unspecified; F90.9 Attention-deficit hyperactivity disorder, unspecified type; F39 Unspecified mood [affective] disorder; Z79.4 Long term (current) use of insulin; Z79.899 Other long term (current) drug therapy
CPT/HCPCS: 71045; 80048; 80076; 81001; 82010; 82077; 82550; 82553; 82803; 83036; 83605; 83690; 83735; 83930; 84484; 85025; 87040; 87486; 87581; 87633; 87798; 93005; 93041; 94760; 96374; 99285; J1815; J2405

== ENCOUNTER → 2025-10-16 | Outpatient (CLI) | payer MEDICARE, BC, MEDICAID ==
[~2025-10-16] MED LIST changes: -GLUC1KIT; -GLUC1KIT IM; +GLUC1VIA14; +GLUC1VIA14 IM; +ONDA-284 PO; +OSEL75CA PO; +VENTAER INH
== END ==
LOC: M WUC 12:56
PROVIDERS: ATTEND Physician Assistant Medical
DX: M25.532 Pain in left wrist (principal)